=== PATIENT | female | born 1985 | race African-American/Black ===

== ENCOUNTER 2016-10-10 15:37 | Emergency (ER) | payer MEDICAID ==
[~2016-10-10] VITALS: Ht 167.6 cm; Wt 70.3 kg
[~2016-10-10 15:37] MED LIST: DICL30AD3 PO; DIPH50CA37 PO; FOLI1TAB16 PO; HYDR500C2 PO; PROM25TA15 PO
[2016-10-10] MEDS ORDERED: HYDROMORPHONE 1 MG/1 ML DISP.SYRIN IV ONE ×2 (17:30→19:15)
[2016-10-10] MEDS ORDERED: diphenhydrAMINE 50 MG/1 ML VIAL IV ONE ×2 (17:30→19:15)
--- NOTE | 2016-10-10 17:35 | NUR ---
Pt arrived to ER with luis e cath to LUE already accessed, flused without difficulty.
[2016-10-10] MEDS ORDERED: HYDROMORPHONE 2 MG/1 ML DISP.SYRIN ONE ×2 (17:49→19:18)
[2016-10-10] MEDS ORDERED: diphenhydrAMINE 50 MG/1 ML VIAL ONE ×2 (17:49→19:18)
[2016-10-10] MEDS ORDERED: HEPARIN SODIUM,PORCINE/PF 100 UNIT/ML, 5ML SYR ONE (17:55)
--- NOTE | 2016-10-10 19:17 | NUR ---
Patient discharged to home in stable conditon. Written and verbal after care instructions given. Patient verbalizes understanding of instructions.
== END 2016-10-10 19:18 | disposition home or self-care (01) ==
LOC: ER 15:37
DX: Z01.89 Encounter for other specified special examinations (principal); F10.20 Alcohol dependence, uncomplicated; Z88.6 Allergy status to analgesic agent; Z88.1 Allergy status to other antibiotic agents; Z88.8 Allergy status to other drugs, medicaments and biological substances
CPT/HCPCS: 93005; A4663; J1170; J1200; J1642

== ENCOUNTER 2016-10-24 16:34 | Emergency (ER) | payer MEDICAID ==
[~2016-10-24] VITALS: Ht 167.6 cm; Wt 68.0 kg
[2016-10-24] MEDS ORDERED: diphenhydrAMINE 50 MG/1 ML VIAL IV ONE ×2 (17:00→17:45)
[2016-10-24] MEDS ORDERED: HYDROMORPHONE 1 MG/1 ML DISP.SYRIN IV ONE ×2 (17:00→17:45)
[2016-10-24] MEDS ORDERED: diphenhydrAMINE 50 MG/1 ML VIAL ONE ×2 (17:03→17:56)
[2016-10-24] MEDS ORDERED: HYDROMORPHONE 2 MG/1 ML DISP.SYRIN ONE ×2 (17:03→17:56)
--- NOTE | 2016-10-24 17:05 | NUR ---
Patient is resting comfortably on gurney while using her personal electronic device, NAD
[2016-10-24] MEDS ORDERED: PROMETHAZINE HCL 25 MG/1 ML VIAL IV ONE (17:15)
[2016-10-24] MEDS ORDERED: PROMETHAZINE HCL 25 MG/1 ML VIAL ONE (17:24)
--- NOTE | 2016-10-24 17:44 | NUR ---
Patient wants more pain medicine, notified.
[2016-10-24] MEDS ORDERED: HEPARIN SODIUM,PORCINE/PF 100 UNIT/ML, 5ML SYR ONE (17:46)
--- NOTE | 2016-10-24 17:52 | NUR ---
Patient discharged to home in stable conditon. Written and verbal after care instructions given to patient. Patient verbalizes understanding of instructions.
--- NOTE | 2016-10-24 18:14 | NUR ---
Patient ambulated out of ER with brisk steady gait.
== END 2016-10-24 18:14 | disposition home or self-care (01) ==
LOC: ER 16:36
DX: D57.00 Hb-SS disease with crisis, unspecified (principal); F10.20 Alcohol dependence, uncomplicated; Z88.1 Allergy status to other antibiotic agents; Z88.6 Allergy status to analgesic agent; Z88.8 Allergy status to other drugs, medicaments and biological substances
CPT/HCPCS: 93005; 96374; 96375; 96376; 99284; A4663; J1170 ×2; J1200 ×2; J1642; J2550; J3490

== ENCOUNTER 2016-11-14 14:20 | Emergency (ER) | payer MEDICAID ==
--- NOTE | 2016-11-14 14:25 | NUR ---
PT LEFT WITHOUT BEING TRIAGED, PT SAID HAD TO DO SOME CHORES AND WILL COME BACK LATER.
== END 2016-11-14 14:25 | disposition left against medical advice (07) ==
LOC: ER 14:20
DX: Z53.21 Procedure and treatment not carried out due to patient leaving prior to being seen by health care provider (principal)

== ENCOUNTER 2016-11-19 16:23 | Emergency (ER) | payer MEDICAID ==
[~2016-11-19] VITALS: Ht 167.6 cm; Wt 68.0 kg
[2016-11-19] MEDS ORDERED: diphenhydrAMINE 50 MG/1 ML VIAL IV ONE ×2 (16:45→17:45)
[2016-11-19] MEDS ORDERED: HYDROMORPHONE 1 MG/1 ML DISP.SYRIN IV ONE ×2 (16:45→17:45)
[2016-11-19] MEDS ORDERED: IV NORMAL SALINE 1000 ML BAG IV ONE (16:45)
[2016-11-19] MEDS ORDERED: HYDROMORPHONE 2 MG/1 ML DISP.SYRIN ONE ×2 (16:52→18:11)
[2016-11-19] MEDS ORDERED: diphenhydrAMINE 50 MG/1 ML VIAL ONE ×2 (16:52→18:11)
--- NOTE | 2016-11-19 18:31 | NUR ---
Patient discharged to home in stable conditon. Written and verbal after care instructions given. Patient verbalizes understanding of instructions.
== END 2016-11-19 18:38 | disposition home or self-care (01) ==
LOC: ER 16:23
DX: D57.00 Hb-SS disease with crisis, unspecified (principal); F10.20 Alcohol dependence, uncomplicated; Z90.49 Acquired absence of other specified parts of digestive tract; Z88.6 Allergy status to analgesic agent; Z88.1 Allergy status to other antibiotic agents; Z88.8 Allergy status to other drugs, medicaments and biological substances
CPT/HCPCS: A4663; J1170; J1200; J7030

== ENCOUNTER 2017-05-20 17:51 | Inpatient (IN) | payer MEDICAID ==
[~2017-05-20] VITALS: Ht 167.6 cm; Wt 65.8 kg
[~2017-05-20 17:51] MED LIST changes: -DICL30AD3 PO; +HYDR4TAB4 PO
--- NOTE | 2017-05-20 19:45 | NUR ---
Pt ambulated to room with steady gait. Pt c/o sickle cell generalized pain. As well as mid sternal sharp cp radiating to left chest. Pt changed into gown and placed on monitor. Pt resting in position of comfort for self, awaiting further eval
[2017-05-20 20:56] LABS: HEMOGLOBIN 7.9 G/DL (12.0-16.0); MEAN CORPUSCULAR HEMOGLOBIN 34.7 UUG (27.0-31.0); MEAN CORPUSCULAR HGB CONC 35 g/dL (32.0-37.0); MEAN CORPUSCULAR VOLUME 98.5 FL (81.0-99.0); PLATELET COUNT (AUTO) 310 K/UL (150-450); WHITE BLOOD COUNT (AUTO) 16.8 K/UL (4.0-11.2)
[2017-05-20 20:59] LABS: CARBON DIOXIDE 24 mmol/L (21-32); CHLORIDE 105 mmol/L (98-107); CREATININE 0.6 mg/dL (0.6-1.3); GLUCOSE 100 mg/dL (74-106); POTASSIUM 3.2 mmol/L (3.5-5.1); UREA NITROGEN, BLOOD 8 mg/dL (7-18)
[2017-05-20 21:00] LABS: RED BLOOD CELL COUNT(AUTO) 2.29 MIL/UL (4.2-5.4)
[2017-05-20] MEDS ORDERED: HYDROMORPHONE 1 MG/1 ML DISP.SYRIN IV ONE ×2 (21:00→22:45)
[2017-05-20] MEDS ORDERED: IV NORMAL SALINE 1000 ML BAG IV ONE ×2 (21:00→22:45)
[2017-05-20] MEDS ORDERED: diphenhydrAMINE 50 MG/1 ML VIAL IV ONE (21:00)
[2017-05-20 21:01] LABS: HEMATOCRIT 22.5 % (37-47)
[2017-05-20 21:11] LABS: LYMPHOCYTES % (MANUAL) 28 % (20-40); NEUTROPHILS % (MANUAL) 67 % (42-75)
[2017-05-20 21:12] LABS: ALANINE AMINOTRANSFERASE 66 U/L (14-59); ALKALINE PHOSPHATASE 98 U/L (50-136); ASPARTATE AMINOTRANSFERASE 80 U/L (15-37); BILIRUBIN,DIRECT 0.5 mg/dL (0.0-0.2); BILIRUBIN,TOTAL 2.6 mg/dL (0.2-1.0); MONOCYTES % (MANUAL) 5 % (2-10); TOTAL PROTEIN, SERUM 7.2 g/dL (6.4-8.2)
[2017-05-20] MEDS ORDERED: diphenhydrAMINE 50 MG/1 ML VIAL ONE ×2 (21:46→23:13)
[2017-05-20] MEDS ORDERED: HYDROMORPHONE 1 MG/1 ML DISP.SYRIN ONE ×2 (21:47→23:13)
--- NOTE | 2017-05-20 22:30 | NUR ---
Pt conts to c/o severe pain and itching from previous pain medication. Pt requesting more dilaudid and benadryl. Dr. Palacios notified, awaiting further orders.
[2017-05-20] MEDS ORDERED: diphenhydrAMINE 50 MG/1 ML VIAL IM ONE (22:45)
--- NOTE | 2017-05-20 23:11 | NUR ---
Pt medicated for cont c/o pain and itching. Will monitor for effects of medication.
[2017-05-20] MEDS ORDERED: IOHEXOL 350 100 ML INFUS..BTL ONE ×2 (23:26→23:52)
[2017-05-20] MEDS ORDERED: IV NORMAL SALINE 250 ML IV ONE (23:26)
--- NOTE | 2017-05-20 23:28 | NUR ---
Pt to CT via vania
--- NOTE | 2017-05-21 00:15 | NUR ---
Pt returned from CT via rflushing. Pt conts to c/o pain. Sts her general pain improved but is now returning but her chest pain never changed. Dr. Palacios notified. Awaiting further orders.
[2017-05-21] MEDS ORDERED: HYDROMORPHONE 1 MG/1 ML DISP.SYRIN IV ONE (00:30)
--- NOTE | 2017-05-21 00:32 | NUR ---
Pt medicated for discomfort, will monitor for effects of medication. Fluid bolus cont infusing freely to gravity.
[2017-05-21] MEDS ORDERED: HYDROMORPHONE 1 MG/1 ML DISP.SYRIN ONE (00:43)
[2017-05-21] MEDS ORDERED: IOHEXOL 350 100 ML INFUS..BTL ONE (01:00)
--- NOTE | 2017-05-21 02:45 | NUR ---
Epic stamp redemption clerk paged for Dr. Palacios
--- NOTE | 2017-05-21 03:08 | NUR ---
Pt resting in position of comfort for self with eyes closed, resp even and unlabored. No obvious signs of distress at this time.
--- NOTE | 2017-05-21 05:37 | NUR ---
Woke pt up to check how she was feeling. Pt cont to c/o 02/[address] Palacios notified. Awaiting further orders. Admission pending.
--- NOTE | 2017-05-21 05:50 | NUR ---
Report called to JULIA Trotter. Preparing to transfer pt to the floor.
[2017-05-21 06:00] VITALS: BP 132/65
[2017-05-21] MEDS ORDERED: PROMETHAZINE HCL INJ 12.5 MG in IV DEXTROSE 5% 50 ML IV PRN (06:45)
[2017-05-21] MEDS ORDERED: ZOLPIDEM 5 MG TABLET PO PRN (06:45)
[2017-05-21] MEDS ORDERED: Z GUARD REMEDY PASTE 57 GM TUBE TOP PRN (06:45)
[2017-05-21] MEDS ORDERED: diphenhydrAMINE 50 MG CAPSULE PO PRN (06:45)
[2017-05-21] MEDS ORDERED: HYDROMORPHONE 1 MG/1 ML DISP.SYRIN IV PRN (06:45)
[2017-05-21] MEDS ORDERED: PROMETHAZINE HCL 25 MG TABLET PO PRN (06:45)
[2017-05-21] MEDS ORDERED: ACETAMINOPHEN 325 MG TABLET PO PRN (06:45)
[2017-05-21] MEDS ORDERED: diphenhydrAMINE 50 MG/1 ML VIAL IV PRN (08:00)
[2017-05-21] MEDS ORDERED: HYDROMORPHONE 2 MG/1 ML DISP.SYRIN IV PRN (08:30)
[2017-05-21] MEDS: FOLIC ACID 1 MG TABLET PO SCH (08:58)
[2017-05-21] MEDS ORDERED: HYDROXYUREA 500 MG CAPSULE PO SCH (09:00)
--- NOTE | 2017-05-21 09:14 | NUR ---
PT REFUSES TELE MONITOR, PER DR. ALMANZA D/C TELEMETRY
--- NOTE | 2017-05-21 10:44 | NUR ---
PT REQUESTS DILAUDID 2MG Q2H AND BENADRYL Q4H, PAGED DR. LEA. PH [phone]
--- NOTE | 2017-05-21 10:53 | NUR ---
PER DR. LEA DILAUDID 2MG Q2H, BENADRYL 25MG Q4HR, ORDER NOTED.
[2017-05-21] MEDS: HYDROMORPHONE 2 MG/1 ML DISP.SYRIN IV PRN ×5 (12:07→23:32)
[2017-05-21] MEDS: IV NS 1000 ML 1,000 ML IV PRN ×2 (13:18→21:34)
[2017-05-21] MEDS: diphenhydrAMINE 50 MG/1 ML VIAL IV PRN ×2 (15:11→21:20)
[2017-05-21 15:19] VITALS: BP 115/67
--- NOTE | 2017-05-21 19:01 | NUR ---
PT IS LAYING IN BED COMFORTABLY. NO S/S OF RESPIRATORY DISTRESS NOTED. NO PAIN REPORTED. IV INTACT/PATENT. ALL SAFETY NEEDS ARE MET.
--- NOTE | 2017-05-21 19:30 | NUR ---
RECEIVED SHIFT REPORT FROM PREVIOUS SHIFT NURSE. PATIENT IS A/OX3, AMBULATORY, APPEARS COMFORTABLE. COMPLAINS OF PAIN IN BOTH KNEES AND LOWER LEFT BACK. WILL PROVIDE PAIN MANAGEMENT. PATIENT IS SAFE, NO S/S OF DISTRESS, STABLE CONDITION. SAFETY AND COMFORT WILL BE PROVIDED THROUGHOUT SHIFT.
[2017-05-21 20:00] VITALS: BP 136/53
[2017-05-22] MEDS: diphenhydrAMINE 50 MG/1 ML VIAL IV PRN ×6 (02:19→22:58)
[2017-05-22] MEDS: HYDROMORPHONE 2 MG/1 ML DISP.SYRIN IV PRN ×10 (02:25→22:57)
[2017-05-22 04:00] VITALS: BP 130/73
[2017-05-22] MEDS: IV NS 1000 ML 1,000 ML IV PRN ×3 (06:40→23:10)
[2017-05-22 08:10] LABS: BASOPHILS # (AUTO) 0.1 K/uL (0.0-8.0); BASOPHILS % (AUTO) 0.9 % (0.0-2.0); EOSINOPHILS # (AUTO) 0.5 K/uL (0.0-0.7); EOSINOPHILS % (AUTO) 3.8 % (0.0-7.0); HEMATOCRIT 24.1 % (37-47); HEMOGLOBIN 8.2 G/DL (12.0-16.0); LYMPHOCYTES # (AUTO) 3.9 K/UL (0.8-4.8); MEAN CORPUSCULAR HEMOGLOBIN 33.1 UUG (27.0-31.0); MEAN CORPUSCULAR HGB CONC 34 g/dL (32.0-37.0); MEAN CORPUSCULAR VOLUME 97.9 FL (81.0-99.0); MONOCYTES # (AUTO) 1.6 K/UL (0.1-1.30); MONOCYTES % (AUTO) 12.3 % (0.0-11.0); NEUTROPHILS # (AUTO) 7.2 K/UL (1.8-8.9); WHITE BLOOD COUNT (AUTO) 13.3 K/UL (4.0-11.2)
[2017-05-22 08:21] LABS: PLATELET COUNT (AUTO) 316 K/UL (150-450); RED BLOOD CELL COUNT(AUTO) 2.46 MIL/UL (4.2-5.4)
[2017-05-22 08:31] LABS: ALANINE AMINOTRANSFERASE 67 U/L (14-59); ALKALINE PHOSPHATASE 100 U/L (50-136); ASPARTATE AMINOTRANSFERASE 85 U/L (15-37); BILIRUBIN,TOTAL 2.6 mg/dL (0.2-1.0); CARBON DIOXIDE 26 mmol/L (21-32); CHLORIDE 104 mmol/L (98-107); CHOLESTEROL 194 mg/dL (<200); CREATININE 0.5 mg/dL (0.6-1.3); GLUCOSE 115 mg/dL (74-106); HDL CHOLESTEROL 30 mg/dL (40-60); MAGNESIUM 1.6 mg/dL (1.8-2.4); PHOSPHOROUS 4.1 mg/dL (2.5-4.9); POTASSIUM 4.2 mmol/L (3.5-5.1); TOTAL PROTEIN, SERUM 7.1 g/dL (6.4-8.2); TRIGLYCERIDES 263 MG/DL (30-150); UREA NITROGEN, BLOOD 6 mg/dL (7-18)
[2017-05-22 08:35] LABS: THYROID STIMULATING HORMONE 2.809 mIU/mL (0.358-3.740)
[2017-05-22] MEDS: FOLIC ACID 1 MG TABLET PO SCH (08:47)
[2017-05-22] MEDS: HYDROXYUREA 500 MG CAPSULE PO SCH (08:48)
[2017-05-22 09:08] LABS: BAND % (MANUAL) 2 % (0-10); EOSINOPHILS % (MANUAL) 5 % (0-8); LYMPHOCYTES % (MANUAL) 30 % (20-40); MONOCYTES % (MANUAL) 10 % (2-10); NEUTROPHILS % (MANUAL) 53 % (42-75)
[2017-05-22 11:45] VITALS: BP 116/74
[2017-05-22] MEDS: MAGNESIUM SULFATE/D5W 100 ML IV SCH ×2 (14:15→14:38)
--- NOTE | 2017-05-22 20:00 | NUR ---
PT IS A/O X 4 IN NO ACUTE DISTRESS. ABLE TO FOLLOW SIMPLE COMMANDS WITHOUT DIFFICULTY. STATES SHE HAS CHRONIC PAIN AND REQUESTS DILAUDED AND BENADRYL UPON AVAILABLE PRN TIME. V/S NOTED WITH BP 148/77. NO HEADACHES OR DIZZINESS OR SHORTNESS OF BREATHE. CONTINUE TO MONITOR. CALL LIGHT PLACED WITHIN REACH. CONTINUES NS @125ML/HR TO DAVIDA CATH ON LEFT UPPER ARM.
[2017-05-22 20:40] VITALS: BP 148/77
[2017-05-23] MEDS: HYDROMORPHONE 2 MG/1 ML DISP.SYRIN IV PRN ×11 (00:56→23:55)
--- NOTE | 2017-05-23 01:00 | NUR ---
PT REQUSTED PRN DILALUDID AT THIS TIME DUE TO GENERALIZED PAIN. NO ACUTE DISTRESS NOTED. CONTINUE TO MONITOR.
[2017-05-23] MEDS: diphenhydrAMINE 50 MG/1 ML VIAL IV PRN ×5 (05:00→21:57)
[2017-05-23 05:02] VITALS: BP 134/71
[2017-05-23 08:35] LABS: CARBON DIOXIDE 26 mmol/L (21-32); CHLORIDE 103 mmol/L (98-107); CREATININE 0.5 mg/dL (0.6-1.3); GLUCOSE 107 mg/dL (74-106); MAGNESIUM 1.6 mg/dL (1.8-2.4); POTASSIUM 4.4 mmol/L (3.5-5.1); UREA NITROGEN, BLOOD 7 mg/dL (7-18)
[2017-05-23] MEDS: FOLIC ACID 1 MG TABLET PO SCH (09:39)
[2017-05-23] MEDS: MAGNESIUM SULFATE/D5W 100 ML IV SCH ×2 (10:45→16:02)
[2017-05-23] MEDS: HYDROXYUREA 500 MG CAPSULE PO SCH (10:55)
[2017-05-23 11:29] VITALS: BP 127/61
[2017-05-23] MEDS: IV NS 1000 ML 1,000 ML IV PRN ×2 (18:07→18:08)
--- NOTE | 2017-05-23 18:52 | NUR ---
PT. RESTING AND SLEEPING INTERMITTENTLY THROUGHOUT SHIFT BUT MORE ACTIVE IN LATE AFTERNOON TALKING ON THE PHONE AND INTERACTIVE WITH STAFF. SITTING UP FOR DINNER. GOOD APPETITE. VOIDING WELL. FAIR TO GOOD PAIN CONTROL.
--- NOTE | 2017-05-23 19:30 | NUR ---
PT IS ALERT AWAKE IN ROOM IN NO ACUTE DISTRESS. DAVIDA CATH PRESENT TO LEFT UPPER ARM INTACT. STATES PAIN 2/10 GENERALIZED TO BODY. ABLE TO MAKE NEEDS KNOWN. ENCOURAGED FLUID INTAKE AND TO USE CALL LIGHT FOR ASSISTANCE NEEDED. IV HYDRATION NS AT 125ML/HR CONTINUOUS STILL PRESENT AT THIS TIME. CONTINUE TO MONITOR.
[2017-05-23 20:15] VITALS: BP 149/81
[2017-05-24] MEDS: IV NS 1000 ML 1,000 ML IV PRN (02:06)
[2017-05-24] MEDS: diphenhydrAMINE 50 MG/1 ML VIAL IV PRN ×3 (02:06→10:55)
[2017-05-24] MEDS: HYDROMORPHONE 2 MG/1 ML DISP.SYRIN IV PRN ×5 (02:07→10:55)
[2017-05-24 06:11] VITALS: BP 114/53
[2017-05-24] MEDS ORDERED: PANTOPRAZOLE SODIUM 40 MG TABLET.DR PO SCH (07:00)
--- NOTE | 2017-05-24 07:30 | NUR ---
PT IS ALERT AWAKE IN ROOM IN NO ACUTE DISTRESS. DAVIDA CATH PRESENT TO LEFT UPPER ARM INTACT. ABLE TO MAKE NEEDS KNOWN. ENCOURAGED FLUID INTAKE AND TO USE CALL LIGHT FOR ASSISTANCE NEEDED. CONTINUE TO MONITOR
[2017-05-24] MEDS: FOLIC ACID 1 MG TABLET PO SCH (08:12)
[2017-05-24] MEDS: HYDROXYUREA 500 MG CAPSULE PO SCH (08:14)
--- NOTE | 2017-05-24 11:50 | NUR ---
PT REFUSED THE VITAL SIGN MD MADE AWARE
--- NOTE | 2017-05-24 12:52 | NUR ---
D/C ORDERS RECEIVED NOTED AND CARRIED OUT.D.C PORTAL CATH BY RN.D/C INSTRUCTIONS AND EDUCATIONS GIVEN TO THE PT.PT VERBALIZED UNDERSTANDING ALL THE INSTRUCTIONS.PT LEFT THE FACILITY VIA PRIVATE CAR IN STABLE CONDITION.
== END 2017-05-24 12:55 | disposition home or self-care (01) | DRG 662 ==
LOC: ER 17:51 → TELE 05-21 05:48 → MED 05-21 10:10
PROVIDERS: ADMIT Nurse Practitioner Acute Care; ATTEND Family Medicine
DX: D57.00 Hb-SS disease with crisis, unspecified (principal); M90.561 Osteonecrosis in diseases classified elsewhere, right lower leg; G40.909 Epilepsy, unspecified, not intractable, without status epilepticus; Z86.73 Personal history of transient ischemic attack (TIA), and cerebral infarction without residual deficits; Z88.1 Allergy status to other antibiotic agents; Z83.2 Family history of diseases of the blood and blood-forming organs and certain disorders involving the immune mechanism; Z90.49 Acquired absence of other specified parts of digestive tract; Z88.2 Allergy status to sulfonamides; Z88.8 Allergy status to other drugs, medicaments and biological substances; R91.8 Other nonspecific abnormal finding of lung field; D63.8 Anemia in other chronic diseases classified elsewhere
CPT/HCPCS: 36415; 70030-TC; 71010; 71275; 73562; 82746; 83735; 84100; 84443; 84703; 85025; 85730; 93005; A4663; J1170; J1200; J2550; J3475; J7030; J7050; J7060; Q9967

== ENCOUNTER 2017-06-11 16:58 | Inpatient (IN) | payer MEDICAID ==
[~2017-06-11] VITALS: Ht 167.6 cm; Wt 74.8 kg
[~2017-06-11 16:58] MED LIST changes: -FOLI1TAB16 PO
[2017-06-11] MEDS ORDERED: DAPT500V2 IV (17:39)
[2017-06-11] MEDS ORDERED: [UNRECOGNIZED DRUG - REMARK] (17:39)
[2017-06-11] MEDS ORDERED: IV NS 1000 ML 1,000 ML IV ONE (18:30)
[2017-06-11] MEDS ORDERED: diphenhydrAMINE 50 MG/1 ML VIAL IV ONE ×2 (19:00→19:30)
[2017-06-11] MEDS ORDERED: HYDROMORPHONE 1 MG/1 ML DISP.SYRIN IV ONE ×2 (19:00→19:30)
[2017-06-11 19:11] LABS: BASOPHILS # (AUTO) 0.2 K/uL (0.0-8.0); BASOPHILS % (AUTO) 1.3 % (0.0-2.0); EOSINOPHILS # (AUTO) 0.6 K/uL (0.0-0.7); EOSINOPHILS % (AUTO) 4.6 % (0.0-7.0); HEMOGLOBIN 7.5 G/DL (12.0-16.0); LYMPHOCYTES # (AUTO) 3.6 K/UL (0.8-4.8); LYMPHOCYTES % (AUTO) 28.6 % (20.5-51.5); MEAN CORPUSCULAR HEMOGLOBIN 33.6 UUG (27.0-31.0); MEAN CORPUSCULAR HGB CONC 36 g/dL (32.0-37.0); MEAN CORPUSCULAR VOLUME 93.3 FL (81.0-99.0); MONOCYTES # (AUTO) 1.2 K/UL (0.1-1.30); MONOCYTES % (AUTO) 9.5 % (0.0-11.0); PLATELET COUNT (AUTO) 363 K/UL (150-450); RED BLOOD CELL COUNT(AUTO) 2.23 MIL/UL (4.2-5.4); WHITE BLOOD COUNT (AUTO) 12.6 K/UL (4.0-11.2)
[2017-06-11] MEDS ORDERED: diphenhydrAMINE 50 MG/1 ML VIAL ONE ×2 (19:15→19:44)
[2017-06-11] MEDS ORDERED: HYDROMORPHONE 2 MG/1 ML DISP.SYRIN ONE ×2 (19:16→19:45)
[2017-06-11 19:18] LABS: HEMATOCRIT 20.8 % (37-47)
[2017-06-11 19:20] LABS: CREATININE 0.7 mg/dL (0.6-1.3); POTASSIUM 3.9 mmol/L (3.5-5.1)
[2017-06-11 19:25] LABS: BILIRUBIN,TOTAL 2.1 mg/dL (0.2-1.0); TOTAL PROTEIN, SERUM 7.1 g/dL (6.4-8.2)
[2017-06-11 20:09] LABS: NEUTROPHILS % (MANUAL) 52 % (42-75)
[2017-06-11 20:10] LABS: BAND % (MANUAL) 4 % (0-10); EOSINOPHILS % (MANUAL) 5 % (0-8); LYMPHOCYTES % (MANUAL) 30 % (20-40); MONOCYTES % (MANUAL) 9 % (2-10)
[2017-06-11] MEDS ORDERED: diphenhydrAMINE 50 MG CAPSULE PO PRN (21:00)
[2017-06-11] MEDS ORDERED: ACETAMINOPHEN 325 MG TABLET PO PRN (21:00)
[2017-06-11] MEDS ORDERED: ONDANSETRON 4 MG/2 ML VIAL IV PRN (21:00)
[2017-06-11] MEDS ORDERED: HYDROCODONE/APAP 5-325MG TABLET PO PRN (21:00)
[2017-06-11] MEDS ORDERED: MAGNESIUM HYDROXIDE 30 ML LIQUID UDC PO PRN (21:00)
[2017-06-11] MEDS ORDERED: Z GUARD REMEDY PASTE 57 GM TUBE TOP PRN (21:00)
[2017-06-11] MEDS ORDERED: PROMETHAZINE HCL 25 MG TABLET PO PRN (21:00)
--- NOTE | 2017-06-11 21:20 | NUR ---
Pt. admitted to [facility], under care of Dr. Campo Belongs List completed
--- NOTE | 2017-06-11 21:30 | NUR ---
RECEIVED PT FROM ER VIA WHEELCHAIR. PT IS ALERT, RESPONSIVE, IN NO ACUTE DISTRESS. PT IS ADMITTED TO MED SURG UNDER THE CARE OF DR. BELL. DX: SICKLE CELL PAIN. BELONGING LIST DONE, VS STABLE, AFEBRILE. ADMISSION PROCESS AND CARE PLAN INITIATED. NEW ADMISSION ORDERS DONE BY DR. BELL. SAFETY MEASURES IN PLACE, WILL CONTINUE TO MONITOR.
[2017-06-11 21:41] VITALS: BP 127/62
[2017-06-11] MEDS: HYDROMORPHONE 2 MG/1 ML DISP.SYRIN ONE ×2 (23:16→23:26)
[2017-06-11] MEDS ORDERED: diphenhydrAMINE 50 MG CAPSULE ONE (23:17)
[2017-06-11] MEDS: HYDROMORPHONE 1 MG/1 ML DISP.SYRIN IV PRN (23:26)
[2017-06-11] MEDS: IV NS 1000 ML 1,000 ML IV PRN (23:59)
[2017-06-12] MEDS: HYDROMORPHONE 1 MG/1 ML DISP.SYRIN IV PRN ×2 (02:29→05:28)
[2017-06-12] MEDS ORDERED: HYDROMORPHONE 2 MG/1 ML DISP.SYRIN ONE ×2 (02:42→05:39)
--- NOTE | 2017-06-12 02:50 | NUR ---
PT REPORTED TAKING ANTIBIOTIC TREATMENT FOR PORTACATH ACCESS THAT WAS PRESCRIBED FROM HER RECENT HOSPITALIZATION AT [facility]. PER PATIENT, MEDICATION IS DAPTOMYCIN 408 MG DAILY FOR [address] FIREPROOF DOOR ASSEMBLER DR. GARZA MADE AWARE. ALSO NOTIFIED REGARDING PATIENT'S ALLERGY TO ZOFRAN, ZOFRAN IS LISTED ON THE PATIENT'S MEDICATION ADMINISTRATION RECORD. WILL ENDORSE TO DAY SHIFT RN. Addendum: 06/12/17 at 0559 by MAGDALENA FELIX RN Add: Patient stated that the reason she is on Daptomycin is to treat overall infection based on her blood culture at [facility] or possible infection from her portacath line.
[2017-06-12 04:40] VITALS: BP 115/47
[2017-06-12] MEDS ORDERED: HYDROMORPHONE 2 MG/1 ML DISP.SYRIN IV PRN (07:24)
[2017-06-12] MEDS: HYDROMORPHONE 4 MG/1 ML DISP.SYRIN IV PRN ×5 (08:53→21:12)
[2017-06-12] MEDS ORDERED: HYDROXYUREA 500 MG CAPSULE PO SCH (09:00)
[2017-06-12 11:13] LABS: BASOPHILS # (AUTO) 0.1 K/uL (0.0-8.0); EOSINOPHILS # (AUTO) 0.7 K/uL (0.0-0.7); LYMPHOCYTES # (AUTO) 2.9 K/uL (20.0-40.0); NEUTROPHILS # (AUTO) 4.7 K/uL (1.8-8.9)
[2017-06-12 11:21] LABS: BASOPHILS % (AUTO) 0.6 % (0.0-2.0); EOSINOPHILS % (AUTO) 6.4 % (0.0-7.0); LYMPHOCYTES % (AUTO) 28.7 % (20.5-51.5); MEAN CORPUSCULAR HEMOGLOBIN 33.8 uug (24.7-32.8); MEAN CORPUSCULAR HGB CONC 37 g/dL (32.3-35.6); MEAN CORPUSCULAR VOLUME 92.4 fL (75.5-95.3); MONOCYTES # (AUTO) 1.8 K/uL (2.0-10.0); MONOCYTES % (AUTO) 17.9 % (0.0-11.0); NEUTROPHILS % (AUTO) 46.4 % (38.5-71.5); PLATELET COUNT (AUTO) 309 K/uL (179-408); WHITE BLOOD COUNT (AUTO) 10.2 K/uL (3.8-11.8)
[2017-06-12 11:23] LABS: RED BLOOD CELL COUNT(AUTO) 2.03 MIL/uL (3.63-4.92)
[2017-06-12 11:25] LABS: HEMOGLOBIN 6.9 g/dL (10.9-14.3)
[2017-06-12 11:26] LABS: HEMATOCRIT 18.7 % (31.2-41.9)
[2017-06-12] MEDS: IV NS 1000 ML 1,000 ML IV PRN (12:02)
[2017-06-12 12:07] VITALS: BP 112/69
[2017-06-12 12:10] LABS: CARBON DIOXIDE 21 mmol/L (21-32); CHLORIDE 108 mmol/L (98-107); CREATININE 0.6 mg/dL (0.6-1.3); GLUCOSE 123 mg/dL (74-106); MAGNESIUM 1.7 mg/dL (1.8-2.4); PHOSPHOROUS 3.6 mg/dL (2.5-4.9); POTASSIUM 4.3 mmol/L (3.5-5.1); UREA NITROGEN, BLOOD 8 mg/dL (7-18)
[2017-06-12 12:27] LABS: BASOPHILS % (MANUAL) 1 % (0-2); EOSINOPHILS % (MANUAL) 7 % (0-8); LYMPHOCYTES % (MANUAL) 41 % (20-40); MONOCYTES % (MANUAL) 12 % (2-10); NEUTROPHILS % (MANUAL) 39 % (42-75)
[2017-06-12] MEDS: HYDROXYUREA 500 MG CAPSULE PO SCH (15:06)
[2017-06-12] MEDS: diphenhydrAMINE 50 MG/1 ML VIAL IV PRN ×2 (15:07→21:12)
--- NOTE | 2017-06-12 15:30 | NUR ---
PT REFUSING VITALS TO BE TAKEN
--- NOTE | 2017-06-12 19:30 | NUR ---
Received patient sitting comfortably in bed, eating and talking on the phone. Appears to be A&O x 4. No c/o pain or sob. Skin intact. Port a cath on the left upper arm patent and intact. Safety initiated. Call light within reach. Will continue to monitor.
[2017-06-12 19:45] VITALS: BP 114/44
[2017-06-13] MEDS: IV NS 1000 ML 1,000 ML IV PRN ×2 (00:12→15:24)
[2017-06-13] MEDS: diphenhydrAMINE 50 MG/1 ML VIAL IV PRN ×4 (03:21→21:10)
[2017-06-13] MEDS: HYDROMORPHONE 4 MG/1 ML DISP.SYRIN IV PRN ×6 (03:22→21:10)
--- NOTE | 2017-06-13 03:22 | NUR ---
C/O GENERALIZED PAIN. MEDS GIVEN. WILL CONTINUE TO MONITOR.
[2017-06-13 04:20] VITALS: BP 127/66
--- NOTE | 2017-06-13 04:59 | NUR ---
Patient slept t/o shift. C/O generalized pain, meds given, stated relief. A&O x 4. Patient on the phone most of the time. Vital signs stable. No acute distress noted. Safety and comfort measures maintained t/o shift. All meds given as ordered. All needs met.
[2017-06-13] MEDS ORDERED: HYDROXYUREA 500 MG CAPSULE PO SCH (09:00)
[2017-06-13] MEDS: HYDROXYUREA 500 MG CAPSULE PO SCH (09:10)
[2017-06-13 09:24] LABS: CARBON DIOXIDE 23 mmol/L (21-32); CHLORIDE 106 mmol/L (98-107); CREATININE 0.6 mg/dL (0.6-1.3); GLUCOSE 110 mg/dL (74-106); POTASSIUM 4.3 mmol/L (3.5-5.1); UREA NITROGEN, BLOOD 11 mg/dL (7-18)
[2017-06-13 09:45] LABS: EOSINOPHILS # (AUTO) 0.6 K/uL (0.0-0.7); MEAN CORPUSCULAR HEMOGLOBIN 33.4 uug (24.7-32.8)
[2017-06-13 10:03] LABS: BASOPHILS # (AUTO) 0.2 K/uL (0.0-8.0); BASOPHILS % (AUTO) 1.6 % (0.0-2.0); EOSINOPHILS % (AUTO) 4.4 % (0.0-7.0); LYMPHOCYTES # (AUTO) 3.1 K/uL (20.0-40.0); LYMPHOCYTES % (AUTO) 22.5 % (20.5-51.5); MEAN CORPUSCULAR HGB CONC 37 g/dL (32.3-35.6); MEAN CORPUSCULAR VOLUME 91.4 fL (75.5-95.3); MONOCYTES # (AUTO) 2.1 K/uL (2.0-10.0); MONOCYTES % (AUTO) 15.4 % (0.0-11.0); NEUTROPHILS # (AUTO) 7.8 K/uL (1.8-8.9); NEUTROPHILS % (AUTO) 56.1 % (38.5-71.5); PLATELET COUNT (AUTO) 322 K/uL (179-408)
[2017-06-13 10:32] LABS: HEMATOCRIT 19.2 % (31.2-41.9)
[2017-06-13 11:41] VITALS: BP 120/55
[2017-06-13] MEDS ORDERED: DAPTOMYCIN 500 MG in IV NORMAL SALINE 50 ML IV SCH (12:00)
[2017-06-13 13:53] LABS: EOSINOPHILS % (MANUAL) 3 % (0-8); LYMPHOCYTES % (MANUAL) 35 % (20-40); MONOCYTES % (MANUAL) 12 % (2-10); NEUTROPHILS % (MANUAL) 50 % (42-75)
[2017-06-13 15:09] VITALS: BP 122/65
--- NOTE | 2017-06-13 19:30 | NUR ---
Received patient siting comfortably in the chair. No acute distress noted. Talking on the phone. No c/o pain or sob. Safety initiated. Call light within reach. Will continue to monitor.
[2017-06-14] MEDS: diphenhydrAMINE 50 MG/1 ML VIAL IV PRN ×4 (03:24→21:04)
[2017-06-14] MEDS: HYDROMORPHONE 4 MG/1 ML DISP.SYRIN IV PRN ×7 (03:24→21:04)
[2017-06-14] MEDS ORDERED: HYDROMORPHONE 2 MG/1 ML DISP.SYRIN ONE ×2 (03:25→06:27)
--- NOTE | 2017-06-14 05:16 | NUR ---
Patient slept t/o shift. She did c/o of generalized pain, meds given, stated relief. Safety and comfort measures maintained t/o shift. All meds given as ordered. All needs met.
--- NOTE | 2017-06-14 08:00 | NUR ---
DISCUSSED PLAN OF CARE RE: PAIN MANAGEMENT, FALL PRECAUTION. PT AGREEABLE WITH PLAN OF CARE.
[2017-06-14] MEDS: HYDROXYUREA 500 MG CAPSULE PO SCH (08:45)
[2017-06-14 09:49] LABS: BASOPHILS # (AUTO) 0.3 K/uL (0.0-8.0); BASOPHILS % (AUTO) 1.7 % (0.0-2.0); EOSINOPHILS # (AUTO) 0.6 K/uL (0.0-0.7); EOSINOPHILS % (AUTO) 3.7 % (0.0-7.0); LYMPHOCYTES # (AUTO) 4.4 K/UL (0.8-4.8); LYMPHOCYTES % (AUTO) 28.9 % (20.5-51.5); MEAN CORPUSCULAR HEMOGLOBIN 33.3 UUG (27.0-31.0); MEAN CORPUSCULAR HGB CONC 36 g/dL (32.0-37.0); MEAN CORPUSCULAR VOLUME 93.2 FL (81.0-99.0); MONOCYTES # (AUTO) 1.8 K/UL (0.1-1.30); MONOCYTES % (AUTO) 12.1 % (0.0-11.0); NEUTROPHILS % (AUTO) 53.6 % (38.5-71.5); PLATELET COUNT (AUTO) 389 K/UL (150-450); WHITE BLOOD COUNT (AUTO) 15.1 K/UL (4.0-11.2)
[2017-06-14 10:03] LABS: HEMATOCRIT 20.8 % (37-47); HEMOGLOBIN 7.4 G/DL (12.0-16.0); RED BLOOD CELL COUNT(AUTO) 2.23 MIL/UL (4.2-5.4)
--- NOTE | 2017-06-14 10:30 | NUR ---
Dilaudid ing 2mg pulled out of the Pyxis by shift superintendent.
[2017-06-14 10:46] LABS: CARBON DIOXIDE 23 mmol/L (21-32); CHLORIDE 105 mmol/L (98-107); CREATININE 0.6 mg/dL (0.6-1.3); GLUCOSE 103 mg/dL (74-106); POTASSIUM 4.5 mmol/L (3.5-5.1); UREA NITROGEN, BLOOD 10 mg/dL (7-18)
[2017-06-14 11:05] VITALS: BP 111/60
[2017-06-14] MEDS ORDERED: DAPTOMYCIN 500 MG in IV NORMAL SALINE 50 ML IV SCH (12:00)
[2017-06-14 13:07] LABS: BAND % (MANUAL) 2 % (0-10); EOSINOPHILS % (MANUAL) 4 % (0-8); LYMPHOCYTES % (MANUAL) 31 % (20-40); MONOCYTES % (MANUAL) 12 % (2-10); NEUTROPHILS % (MANUAL) 51 % (42-75)
[2017-06-14 15:33] VITALS: BP 126/45
--- NOTE | 2017-06-14 17:42 | NUR ---
PT PAIN MANAGED WITH DILAUDID NO FALL NOTED ON THIS SHIFT. PLAN OF CARE EFFECTIVE.
[2017-06-14 19:45] VITALS: BP 138/60
[2017-06-15] MEDS: HYDROMORPHONE 4 MG/1 ML DISP.SYRIN IV PRN ×3 (00:06→09:00)
[2017-06-15] MEDS: diphenhydrAMINE 50 MG/1 ML VIAL IV PRN ×2 (03:11→09:00)
--- NOTE | 2017-06-15 06:21 | NUR ---
PATIENT SLEEP INTERMITTENTLY,NO ACUTE CHANGE/SHIFT, CONTINUE PAIN MANAGEMENT WITH DILAUDID,EFFECTIVE.CLOSELY MONITOR VITAL SIGNS.NO RESPIRATORY DISTRESS.
[2017-06-15 07:04] LABS: BASOPHILS # (AUTO) 0.1 K/uL (0.0-8.0); BASOPHILS % (AUTO) 0.9 % (0.0-2.0); EOSINOPHILS # (AUTO) 0.5 K/uL (0.0-0.7); EOSINOPHILS % (AUTO) 3.5 % (0.0-7.0); LYMPHOCYTES # (AUTO) 3.4 K/uL (20.0-40.0); LYMPHOCYTES % (AUTO) 24.8 % (20.5-51.5); MEAN CORPUSCULAR HEMOGLOBIN 33.9 uug (24.7-32.8); MEAN CORPUSCULAR HGB CONC 36 g/dL (32.3-35.6); MEAN CORPUSCULAR VOLUME 93.8 fL (75.5-95.3); MONOCYTES % (AUTO) 14.6 % (0.0-11.0); NEUTROPHILS # (AUTO) 7.7 K/uL (1.8-8.9); NEUTROPHILS % (AUTO) 56.2 % (38.5-71.5); PLATELET COUNT (AUTO) 332 K/uL (179-408); WHITE BLOOD COUNT (AUTO) 13.7 K/uL (3.8-11.8)
[2017-06-15 07:06] LABS: RED BLOOD CELL COUNT(AUTO) 1.92 MIL/uL (3.63-4.92)
[2017-06-15 07:09] LABS: HEMATOCRIT 18.1 % (31.2-41.9); HEMOGLOBIN 6.5 g/dL (10.9-14.3)
[2017-06-15 07:32] LABS: CARBON DIOXIDE 22 mmol/L (21-32); CHLORIDE 106 mmol/L (98-107); CREATININE 0.6 mg/dL (0.6-1.3); GLUCOSE 114 mg/dL (74-106); POTASSIUM 4.5 mmol/L (3.5-5.1); UREA NITROGEN, BLOOD 14 mg/dL (7-18)
[2017-06-15] MEDS: HYDROXYUREA 500 MG CAPSULE PO SCH (09:03)
[2017-06-15 09:08] LABS: BAND % (MANUAL) 1 % (0-10); BASOPHILS % (MANUAL) 1 % (0-2); EOSINOPHILS % (MANUAL) 4 % (0-8); LYMPHOCYTES % (MANUAL) 28 % (20-40); MONOCYTES % (MANUAL) 13 % (2-10); NEUTROPHILS % (MANUAL) 53 % (42-75)
--- NOTE | 2017-06-15 10:00 | NUR ---
Pt refused to have blood transfusion. "i usually get transfused below 6" Discussed risk of refusing PRBC transfusion and with low hg of 6.5. Notified Dr gutierrez of pt wanting to leave AMA. PT states that she has a senior sales operations analyst appt @1030 this AM and cannot wait for the DR to come. Pt continues to refused blood transfusion and left AMA
== END 2017-06-15 09:45 | disposition left against medical advice (07) | DRG 662 ==
LOC: ER 17:00 → MED 21:16
PROVIDERS: ADMIT Internal Medicine; ATTEND Internal Medicine
DX: D57.00 Hb-SS disease with crisis, unspecified (principal); A41.9 Sepsis, unspecified organism; G89.4 Chronic pain syndrome; G40.909 Epilepsy, unspecified, not intractable, without status epilepticus; Z88.6 Allergy status to analgesic agent; Z88.1 Allergy status to other antibiotic agents; Z88.2 Allergy status to sulfonamides; Z86.73 Personal history of transient ischemic attack (TIA), and cerebral infarction without residual deficits; Z90.49 Acquired absence of other specified parts of digestive tract; Z79.891 Long term (current) use of opiate analgesic
CPT/HCPCS: 36415; 71010; 83735; 84100; 85025; A4663; J0878; J1170; J1200; J3490; J7030; Q0163

== ENCOUNTER 2017-07-01 17:43 | Emergency (ER) | payer MEDICAID ==
[~2017-07-01] VITALS: Ht 167.6 cm; Wt 68.0 kg
[~2017-07-01 17:43] MED LIST changes: +DAPT500V2 IV; +[UNRECOGNIZED DRUG - REMARK]
[2017-07-01] MEDS ORDERED: IV NORMAL SALINE 1000 ML BAG IV ONE ×2 (18:30→19:00)
[2017-07-01] MEDS ORDERED: diphenhydrAMINE 50 MG CAPSULE PO ONE (18:30)
[2017-07-01] MEDS ORDERED: HYDROMORPHONE 1 MG/1 ML DISP.SYRIN IV ONE ×3 (18:30→20:15)
[2017-07-01] MEDS ORDERED: diphenhydrAMINE 50 MG/1 ML VIAL IV ONE ×2 (19:00→20:15)
[2017-07-01] MEDS ORDERED: diphenhydrAMINE 50 MG/1 ML VIAL ONE ×2 (19:08→20:33)
[2017-07-01] MEDS ORDERED: HYDROMORPHONE 2 MG/1 ML DISP.SYRIN ONE ×2 (19:09→20:33)
--- NOTE | 2017-07-01 20:26 | NUR ---
Patient discharged to home in stable conditon. Written and verbal after care instructions given. Patient verbalizes understanding of instructions. Ambulated from ER with stable gait. Patient does not drive. All belongings with patient.
[2017-07-01 20:28] VITALS: BP 99/78
== END 2017-07-01 20:29 | disposition home or self-care (01) ==
LOC: ER 17:43
DX: D57.00 Hb-SS disease with crisis, unspecified (principal); Z86.73 Personal history of transient ischemic attack (TIA), and cerebral infarction without residual deficits; Z88.1 Allergy status to other antibiotic agents; Z88.8 Allergy status to other drugs, medicaments and biological substances; Z90.49 Acquired absence of other specified parts of digestive tract
CPT/HCPCS: A4663; J1170; J1200; J7030

== ENCOUNTER 2017-08-14 20:28 | Inpatient (IN) | payer MEDICAID ==
[~2017-08-14] VITALS: Ht 167.6 cm; Wt 68.0 kg
[2017-08-14] MEDS ORDERED: FOLI1TAB16 PO (20:56)
[2017-08-14] MEDS ORDERED: HYDROMORPHONE 1 MG/1 ML DISP.SYRIN IV ONE ×2 (21:00→22:30)
[2017-08-14] MEDS ORDERED: diphenhydrAMINE 50 MG/1 ML VIAL IV ONE ×2 (21:00→22:30)
[2017-08-14] MEDS ORDERED: HYDROMORPHONE 2 MG/1 ML DISP.SYRIN ONE ×2 (21:39→22:49)
[2017-08-14] MEDS ORDERED: diphenhydrAMINE 50 MG/1 ML VIAL ONE ×2 (21:39→22:48)
[2017-08-14 22:25] LABS: BASOPHILS # (AUTO) 0.1 K/uL (0.0-8.0); BASOPHILS % (AUTO) 0.8 % (0.0-2.0); EOSINOPHILS # (AUTO) 2.2 K/uL (0.0-0.7); EOSINOPHILS % (AUTO) 14.4 % (0.0-7.0); HEMATOCRIT 25.9 % (31.2-41.9); HEMOGLOBIN 9.3 g/dL (10.9-14.3); LYMPHOCYTES # (AUTO) 5.2 K/uL (20.0-40.0); LYMPHOCYTES % (AUTO) 34.2 % (20.5-51.5); MEAN CORPUSCULAR HEMOGLOBIN 32.4 uug (24.7-32.8); MEAN CORPUSCULAR HGB CONC 36 g/dL (32.3-35.6); MEAN CORPUSCULAR VOLUME 90.1 fL (75.5-95.3); MONOCYTES # (AUTO) 2.2 K/uL (2.0-10.0); MONOCYTES % (AUTO) 14.6 % (0.0-11.0); NEUTROPHILS # (AUTO) 5.5 K/uL (1.8-8.9); PLATELET COUNT (AUTO) 435 K/uL (179-408); RED BLOOD CELL COUNT(AUTO) 2.88 MIL/uL (3.63-4.92); WHITE BLOOD COUNT (AUTO) 15.1 K/uL (3.8-11.8)
[2017-08-14 22:36] LABS: BILIRUBIN,TOTAL 1.9 mg/dL (0.2-1.0); CREATININE 0.7 mg/dL (0.6-1.3); POTASSIUM 4.3 mmol/L (3.5-5.1); TOTAL PROTEIN, SERUM 7.8 g/dL (6.4-8.2)
[2017-08-15] VITALS: BP 134/88
[2017-08-15] MEDS ORDERED: Z GUARD REMEDY PASTE 57 GM TUBE TOP PRN (00:15)
[2017-08-15] MEDS ORDERED: diphenhydrAMINE 50 MG/1 ML VIAL IV ONE (00:15)
[2017-08-15] MEDS ORDERED: HYDROMORPHONE 1 MG/1 ML DISP.SYRIN IV PRN (00:15)
[2017-08-15] MEDS ORDERED: MAGNESIUM HYDROXIDE 30 ML LIQUID UDC PO PRN (00:15)
[2017-08-15] MEDS ORDERED: ONDANSETRON 4 MG/2 ML VIAL IV PRN (00:15)
[2017-08-15] MEDS ORDERED: ACETAMINOPHEN 325 MG TABLET PO PRN (00:15)
[2017-08-15] MEDS ORDERED: diphenhydrAMINE 50 MG/1 ML VIAL ONE (01:13)
[2017-08-15] MEDS: IV NS 1000 ML 1,000 ML IV PRN ×3 (02:17→18:47)
[2017-08-15] MEDS ORDERED: HYDROMORPHONE 2 MG/1 ML DISP.SYRIN ONE (02:30)
[2017-08-15] MEDS: HYDROMORPHONE 2 MG/1 ML DISP.SYRIN IV PRN ×8 (02:42→20:47)
[2017-08-15 04:00] VITALS: BP 149/95
[2017-08-15] MEDS ORDERED: HYDROXYUREA 500 MG CAPSULE PO SCH (09:00)
[2017-08-15] MEDS ORDERED: FOLIC ACID 1 MG in IV DEXTROSE 5% 50 ML IV SCH ×2 (09:00→12:15)
[2017-08-15 11:30] VITALS: BP 119/65
[2017-08-15 12:09] LABS: *BILIRUBIN,URIN NEGATIVE (NEGATIVE); *BLOOD, URINE NEGATIVE (NEGATIVE); *CLARITY,URINE CLEAR (CLEAR); *COLOR,URINE YELLOW (YELLOW); *KETONES,URINE NEGATIVE (NEGATIVE); *PROTEIN,URINE NEGATIVE (NEGATIVE); *UROBILINOGEN,URINE 0.2 E.U./dl (NORMAL); LEUKOCYTE ESTERASE ,URINE NEGATIVE (NEGATIVE); NITRITE, URINE NEGATIVE (NEGATIVE); UGLUCOSE NEGATIVE (NEGATIVE)
[2017-08-15 12:14] LABS: BACTERIA,URINE NONE SEEN /HPF (NONE SEEN); RBC,URINE 0-3 /HPF (0-3); SQUAMOUS EPITHELIAL CELL,UR FEW /HPF (NONE SEEN); WBC,URINE 0-3 /HPF (0-3)
[2017-08-15] MEDS ORDERED: METOCLOPRAMIDE HCL 5 MG TABLET PO PRN (15:45)
[2017-08-15] MEDS ORDERED: diphenhydrAMINE 25 MG CAP PO PRN (16:00)
[2017-08-15 19:00] VITALS: BP 127/78
[2017-08-15] MEDS: ATORVASTATIN 20 MG TABLET PO SCH (20:46)
[2017-08-15] MEDS: ENOXAPARIN SODIUM 40 MG/0.4 ML DISP.SYRIN SQ SCH (20:51)
[2017-08-16] MEDS: HYDROMORPHONE 2 MG/1 ML DISP.SYRIN IV PRN ×8 (00:14→22:41)
[2017-08-16] MEDS: IV NS 1000 ML 1,000 ML IV PRN ×3 (01:20→15:04)
[2017-08-16 04:00] VITALS: BP 121/74
[2017-08-16 06:16] LABS: CARBON DIOXIDE 22 mmol/L (21-32); CHLORIDE 104 mmol/L (98-107); CHOLESTEROL 199 mg/dL (<200); CREATININE 0.6 mg/dL (0.6-1.3); GLUCOSE 144 mg/dL (74-106); HDL CHOLESTEROL 30 mg/dL (40-60); MAGNESIUM 1.5 mg/dL (1.8-2.4); PHOSPHOROUS 3.8 mg/dL (2.5-4.9); POTASSIUM 3.8 mmol/L (3.5-5.1); TRIGLYCERIDES 195 MG/DL (30-150); UREA NITROGEN, BLOOD 12 mg/dL (7-18)
[2017-08-16 06:30] LABS: BASOPHILS # (AUTO) 0.1 K/uL (0.0-8.0); BASOPHILS % (AUTO) 1.1 % (0.0-2.0); EOSINOPHILS # (AUTO) 1.2 K/uL (0.0-0.7); EOSINOPHILS % (AUTO) 11.2 % (0.0-7.0); HEMATOCRIT 21.9 % (31.2-41.9); LYMPHOCYTES # (AUTO) 3.5 K/uL (20.0-40.0); LYMPHOCYTES % (AUTO) 32.1 % (20.5-51.5); MEAN CORPUSCULAR HEMOGLOBIN 33.2 uug (24.7-32.8); MEAN CORPUSCULAR HGB CONC 37 g/dL (32.3-35.6); MEAN CORPUSCULAR VOLUME 90.2 fL (75.5-95.3); MONOCYTES # (AUTO) 1.6 K/uL (2.0-10.0); MONOCYTES % (AUTO) 14.6 % (0.0-11.0); NEUTROPHILS # (AUTO) 4.4 K/uL (1.8-8.9); PLATELET COUNT (AUTO) 381 K/uL (179-408); WHITE BLOOD COUNT (AUTO) 10.7 K/uL (3.8-11.8)
[2017-08-16 06:41] LABS: RED BLOOD CELL COUNT(AUTO) 2.42 MIL/uL (3.63-4.92)
[2017-08-16] MEDS ORDERED: HYDROXYUREA 500 MG CAPSULE PO SCH ×2 (09:00→09:20)
[2017-08-16] MEDS: ASPIRIN 325 MG TABLET PO SCH (09:15)
[2017-08-16] MEDS: FOLIC ACID 1 MG TABLET PO SCH (09:15)
[2017-08-16] MEDS: HYDROXYUREA 500 MG CAPSULE PO SCH (10:03)
[2017-08-16 11:09] VITALS: BP 129/75
[2017-08-16] MEDS: diphenhydrAMINE 50 MG/1 ML VIAL IV PRN ×2 (13:07→19:40)
[2017-08-16] MEDS: MAGNESIUM SULFATE/D5W 100 ML IV SCH ×2 (15:50→16:50)
[2017-08-16 20:00] VITALS: BP 142/93
[2017-08-16] MEDS: ENOXAPARIN SODIUM 40 MG/0.4 ML DISP.SYRIN SQ SCH (20:57)
[2017-08-16] MEDS: ATORVASTATIN 20 MG TABLET PO SCH (20:58)
[2017-08-17] MEDS: IV NS 1000 ML 1,000 ML IV PRN (00:31)
[2017-08-17 00:44] VITALS: BP 140/83
[2017-08-17] MEDS: diphenhydrAMINE 50 MG/1 ML VIAL IV PRN ×2 (01:56→08:45)
[2017-08-17] MEDS: HYDROMORPHONE 2 MG/1 ML DISP.SYRIN IV PRN ×4 (01:56→11:49)
[2017-08-17 05:38] VITALS: BP 132/56
[2017-08-17 06:32] LABS: BASOPHILS # (AUTO) 0.1 K/uL (0.0-8.0); BASOPHILS % (AUTO) 0.7 % (0.0-2.0); EOSINOPHILS % (AUTO) 7.8 % (0.0-7.0); HEMATOCRIT 21.9 % (31.2-41.9); HEMOGLOBIN 7.9 g/dL (10.9-14.3); LYMPHOCYTES # (AUTO) 4.2 K/uL (20.0-40.0); LYMPHOCYTES % (AUTO) 33.4 % (20.5-51.5); MEAN CORPUSCULAR HEMOGLOBIN 32.4 uug (24.7-32.8); MEAN CORPUSCULAR HGB CONC 36 g/dL (32.3-35.6); MONOCYTES # (AUTO) 1.5 K/uL (2.0-10.0); MONOCYTES % (AUTO) 12.2 % (0.0-11.0); NEUTROPHILS # (AUTO) 5.8 K/uL (1.8-8.9); NEUTROPHILS % (AUTO) 45.9 % (38.5-71.5); PLATELET COUNT (AUTO) 374 K/uL (179-408); WHITE BLOOD COUNT (AUTO) 12.7 K/uL (3.8-11.8)
[2017-08-17 06:39] LABS: RED BLOOD CELL COUNT(AUTO) 2.43 MIL/uL (3.63-4.92)
[2017-08-17 06:48] LABS: CARBON DIOXIDE 23 mmol/L (21-32); CHLORIDE 104 mmol/L (98-107); CREATININE 0.6 mg/dL (0.6-1.3); GLUCOSE 131 mg/dL (74-106); MAGNESIUM 1.8 mg/dL (1.8-2.4); POTASSIUM 3.9 mmol/L (3.5-5.1); UREA NITROGEN, BLOOD 11 mg/dL (7-18)
[2017-08-17] MEDS: FOLIC ACID 1 MG TABLET PO SCH (08:43)
[2017-08-17] MEDS: ASPIRIN 325 MG TABLET PO SCH (08:43)
[2017-08-17] MEDS: HYDROXYUREA 500 MG CAPSULE PO SCH (08:43)
[2017-08-17 11:30] VITALS: BP 146/87
[2017-08-17 12:12] LABS: HEPATITIS A AB, TOTAL Positive (Negative)
== END 2017-08-17 13:20 | disposition home or self-care (01) | DRG 662 ==
LOC: ER 20:30 → TELE 08-15 01:01
PROVIDERS: ADMIT Internal Medicine; ATTEND Registered Nurse
DX: D57.00 Hb-SS disease with crisis, unspecified (principal); E87.1 Hypo-osmolality and hyponatremia; D72.828 Other elevated white blood cell count; R07.9 Chest pain, unspecified; Z88.1 Allergy status to other antibiotic agents; Z90.49 Acquired absence of other specified parts of digestive tract; Z88.6 Allergy status to analgesic agent; Z83.2 Family history of diseases of the blood and blood-forming organs and certain disorders involving the immune mechanism; Z86.73 Personal history of transient ischemic attack (TIA), and cerebral infarction without residual deficits; G89.29 Other chronic pain; Z91.19 Patient's noncompliance with other medical treatment and regimen; R79.89 Other specified abnormal findings of blood chemistry
CPT/HCPCS: 36415; 70030-TC; 71045; 83735; 84100; 84703; 85025; 86704; 86708; 86803; 87040; 87086; 93005; A4663; J1170; J1200; J1650; J3475; J3490; J7030; J7060

== ENCOUNTER 2017-09-10 14:49 | Emergency (ER) | payer MEDICAID ==
[~2017-09-10] VITALS: Ht 167.6 cm; Wt 68.0 kg
[~2017-09-10 14:49] MED LIST changes: -DAPT500V2 IV; -DIPH50CA37 PO; +FOLI1TAB16 PO; -HYDR4TAB4 PO; -PROM25TA15 PO; -[UNRECOGNIZED DRUG - REMARK]
[2017-09-10] MEDS ORDERED: HYDROMORPHONE 2 MG/1 ML DISP.SYRIN ONE ×2 (15:58→17:37)
[2017-09-10] MEDS ORDERED: diphenhydrAMINE 50 MG/1 ML VIAL ONE ×2 (15:58→17:37)
[2017-09-10] MEDS ORDERED: diphenhydrAMINE 50 MG/1 ML VIAL IV ONE ×2 (16:00→17:30)
[2017-09-10] MEDS ORDERED: HYDROMORPHONE 1 MG/1 ML DISP.SYRIN IV ONE ×2 (16:00→17:30)
--- NOTE | 2017-09-10 18:09 | NUR ---
MSE COMPLETED. PT D/C'D HOME, ACI GIVEN. PT AMBULATED W/O DIFF/TOOK ALL BELONGINGS.
[2017-09-10 18:10] VITALS: BP 125/102
== END 2017-09-10 18:15 | disposition home or self-care (01) ==
LOC: ER 14:49
DX: F11.23 Opioid dependence with withdrawal (principal); Z86.73 Personal history of transient ischemic attack (TIA), and cerebral infarction without residual deficits; Z88.2 Allergy status to sulfonamides; Z90.49 Acquired absence of other specified parts of digestive tract; Z88.1 Allergy status to other antibiotic agents; Z88.8 Allergy status to other drugs, medicaments and biological substances; Z79.899 Other long term (current) drug therapy
CPT/HCPCS: A4663; J1170; J1200

== ENCOUNTER 2017-09-19 14:09 | Emergency (ER) | payer MEDICAID ==
[~2017-09-19] VITALS: Ht 167.6 cm; Wt 68.0 kg
--- NOTE | 2017-09-19 14:37 | NUR ---
Patient is resting comfortably on the gurney on her right side, NAD, respiration:easy, pending MD evaluation@this time
--- NOTE | 2017-09-19 14:58 | NUR ---
MD is at bedside evaluating the patient, pending MD orders at this time.
[2017-09-19] MEDS ORDERED: diphenhydrAMINE 50 MG/1 ML VIAL IV ONE ×2 (15:15→16:45)
[2017-09-19] MEDS ORDERED: IV NORMAL SALINE 1000 ML BAG IV ONE (15:15)
[2017-09-19] MEDS ORDERED: HYDROMORPHONE 1 MG/1 ML DISP.SYRIN IV ONE ×3 (15:15→18:00)
[2017-09-19] MEDS ORDERED: diphenhydrAMINE 50 MG/1 ML VIAL ONE ×2 (15:23→16:48)
[2017-09-19] MEDS ORDERED: HYDROMORPHONE 4 MG/1 ML DISP.SYRIN ONE ×3 (15:24→17:52)
[2017-09-19 15:28] LABS: BASOPHILS # (AUTO) 0.2 K/uL (0.0-8.0); BASOPHILS % (AUTO) 1.6 % (0.0-2.0); EOSINOPHILS # (AUTO) 0.5 K/uL (0.0-0.7); EOSINOPHILS % (AUTO) 5.3 % (0.0-7.0); HEMATOCRIT 24.4 % (31.2-41.9); LYMPHOCYTES % (AUTO) 38.5 % (20.5-51.5); MEAN CORPUSCULAR HEMOGLOBIN 37.1 uug (24.7-32.8); MEAN CORPUSCULAR HGB CONC 37 g/dL (32.3-35.6); MEAN CORPUSCULAR VOLUME 100.5 fL (75.5-95.3); MONOCYTES # (AUTO) 1.2 K/uL (2.0-10.0); MONOCYTES % (AUTO) 12.1 % (0.0-11.0); NEUTROPHILS # (AUTO) 4.4 K/uL (1.8-8.9); NEUTROPHILS % (AUTO) 42.5 % (38.5-71.5); PLATELET COUNT (AUTO) 293 K/uL (179-408); WHITE BLOOD COUNT (AUTO) 10.3 K/uL (3.8-11.8)
--- NOTE | 2017-09-19 15:29 | NUR ---
Lights dimmed & extra warm blankets on the patient per patient's request. Patient is now watching TV reruns ("Friends") on her personal electronic device. Blood was drawn from her PORT catheter, pending results@this time.
[2017-09-19 15:31] LABS: RED BLOOD CELL COUNT(AUTO) 2.42 MIL/uL (3.63-4.92)
[2017-09-19 15:35] LABS: CARBON DIOXIDE 28 mmol/L (21-32); CHLORIDE 103 mmol/L (98-107); CREATININE 0.5 mg/dL (0.6-1.3); GLUCOSE 82 mg/dL (74-106); POTASSIUM 3.9 mmol/L (3.5-5.1); UREA NITROGEN, BLOOD 10 mg/dL (7-18)
[2017-09-19 16:04] LABS: EOSINOPHILS % (MANUAL) 4 % (0-8); LYMPHOCYTES % (MANUAL) 40 % (20-40); MONOCYTES % (MANUAL) 11 % (2-10); NEUTROPHILS % (MANUAL) 45 % (42-75)
[2017-09-19 16:06] LABS: BAND % (MANUAL) 0 % (0-10)
--- NOTE | 2017-09-19 16:26 | NUR ---
"Can I more Dilaudid & Benadryl?" per patient's verbalization, MD aware-pending orders
--- NOTE | 2017-09-19 17:33 | NUR ---
Patient is now eating snacks from the hospital provided snacks cart, NAD, deep breathing was encouraged. Patient says "I always have low oxygen level." Spo2=88-low 90's at room air, monitored closely.
--- NOTE | 2017-09-19 17:56 | NUR ---
Patient discharged to home in stable conditon. Written and verbal after care instructions given to patient. Patient verbalizes understanding of instructions.
--- NOTE | 2017-09-19 17:58 | NUR ---
Patient ambulated out of our ER with brisk steady gait.
== END 2017-09-19 17:58 | disposition home or self-care (01) ==
LOC: ER 14:10
DX: D57.00 Hb-SS disease with crisis, unspecified (principal); Z90.49 Acquired absence of other specified parts of digestive tract; Z86.73 Personal history of transient ischemic attack (TIA), and cerebral infarction without residual deficits; Z88.2 Allergy status to sulfonamides; Z88.1 Allergy status to other antibiotic agents; Z88.8 Allergy status to other drugs, medicaments and biological substances; Z79.899 Other long term (current) drug therapy
CPT/HCPCS: 36415; 85025; A4663; J1170; J1200

== ENCOUNTER 2017-10-16 11:58 | Emergency (ER) | payer MEDICAID ==
[~2017-10-16] VITALS: Ht 167.6 cm; Wt 68.0 kg
[2017-10-16] MEDS ORDERED: RIVA10TA PO (12:10)
[2017-10-16] MEDS ORDERED: MORPHINE SULFATE 4 MG/1 ML DISP.SYRIN IV ONE ×2 (12:45→14:15)
[2017-10-16] MEDS ORDERED: HYDROMORPHONE 1 MG/1 ML DISP.SYRIN IV ONE (12:45)
[2017-10-16] MEDS ORDERED: METOCLOPRAMIDE HCL 10 MG/2 ML VIAL IV ONE (12:45)
[2017-10-16] MEDS ORDERED: IV NORMAL SALINE 1000 ML BAG IV ONE (12:45)
[2017-10-16] MEDS ORDERED: MORPHINE SULFATE 4 MG/1 ML DISP.SYRIN ONE ×2 (12:49→14:34)
[2017-10-16] MEDS ORDERED: METOCLOPRAMIDE HCL 10 MG/2 ML VIAL ONE (12:50)
[2017-10-16] MEDS ORDERED: diphenhydrAMINE 50 MG/1 ML VIAL ONE ×2 (13:07→14:34)
[2017-10-16 13:09] LABS: BASOPHILS # (AUTO) 0.2 K/uL (0.0-8.0); BASOPHILS % (AUTO) 1.5 % (0.0-2.0); EOSINOPHILS # (AUTO) 0.7 K/uL (0.0-0.7); EOSINOPHILS % (AUTO) 5.1 % (0.0-7.0); HEMATOCRIT 21.3 % (31.2-41.9); HEMOGLOBIN 7.5 g/dL (10.9-14.3); LYMPHOCYTES # (AUTO) 5.3 K/uL (20.0-40.0); LYMPHOCYTES % (AUTO) 36.6 % (20.5-51.5); MEAN CORPUSCULAR HEMOGLOBIN 30.8 uug (24.7-32.8); MEAN CORPUSCULAR HGB CONC 35 g/dL (32.3-35.6); MEAN CORPUSCULAR VOLUME 87.8 fL (75.5-95.3); MONOCYTES # (AUTO) 1.6 K/uL (2.0-10.0); MONOCYTES % (AUTO) 10.6 % (0.0-11.0); NEUTROPHILS # (AUTO) 6.7 K/uL (1.8-8.9); NEUTROPHILS % (AUTO) 46.2 % (38.5-71.5); PLATELET COUNT (AUTO) 638 K/uL (179-408); WHITE BLOOD COUNT (AUTO) 14.6 K/uL (3.8-11.8)
--- NOTE | 2017-10-16 13:09 | NUR ---
PT IS IN ROOM #2B. DR MALDONADO EVALUATED THE PT.
[2017-10-16 13:13] LABS: CARBON DIOXIDE 26 mmol/L (21-32); CHLORIDE 104 mmol/L (98-107); CREATININE 0.6 mg/dL (0.6-1.3); GLUCOSE 119 mg/dL (74-106); POTASSIUM 3.3 mmol/L (3.5-5.1); UREA NITROGEN, BLOOD 6 mg/dL (7-18)
[2017-10-16] MEDS ORDERED: diphenhydrAMINE 50 MG/1 ML VIAL IV ONE ×2 (13:15→14:15)
[2017-10-16 13:16] LABS: RED BLOOD CELL COUNT(AUTO) 2.42 MIL/uL (3.63-4.92)
[2017-10-16 13:19] LABS: ALANINE AMINOTRANSFERASE 55 U/L (14-59); ALKALINE PHOSPHATASE 138 U/L (50-136); ASPARTATE AMINOTRANSFERASE 48 U/L (15-37); BILIRUBIN,DIRECT 0.3 mg/dL (0.0-0.2); BILIRUBIN,TOTAL 1.3 mg/dL (0.2-1.0); LIPASE 171 U/L (73-393)
[2017-10-16] MEDS ORDERED: IV NORMAL SALINE 100 ML ONE (13:39)
[2017-10-16] MEDS ORDERED: IOHEXOL 300MG/ML 100 ML INFUS..BTL ONE (13:39)
[2017-10-16 14:18] LABS: EOSINOPHILS % (MANUAL) 6 % (0-8); LYMPHOCYTES % (MANUAL) 23 % (20-40); MONOCYTES % (MANUAL) 14 % (2-10); NEUTROPHILS % (MANUAL) 57 % (42-75)
--- NOTE | 2017-10-16 15:39 | NUR ---
PT WAS D/C TO HOME. D/C INSTRUCTIONS GIVEN TO THE PT. PT DENIES PAIN. NO S/S OF DISTRESS.
[2017-10-16 15:41] VITALS: BP 142/85
== END 2017-10-16 15:44 | disposition home or self-care (01) ==
LOC: ER 11:58
DX: D57.00 Hb-SS disease with crisis, unspecified (principal); R10.84 Generalized abdominal pain; Z90.49 Acquired absence of other specified parts of digestive tract; Z88.1 Allergy status to other antibiotic agents; Z88.2 Allergy status to sulfonamides; Z88.8 Allergy status to other drugs, medicaments and biological substances; Z79.899 Other long term (current) drug therapy
CPT/HCPCS: 36415; 70030-TC; 71045; 83690; 84703; 85025; 85730; 93005; A4663; J1200; J2270; J2765; J3490; J7030; Q9967

== ENCOUNTER 2017-11-11 18:10 | Emergency (ER) | payer MEDICAID ==
[~2017-11-11] VITALS: Ht 167.6 cm; Wt 63.5 kg
[~2017-11-11 18:10] MED LIST changes: +RIVA10TA PO
--- NOTE | 2017-11-11 18:25 | NUR ---
ADMIT PT IN RM 2B FROM HOME WITH A CHIEF C/O GENERALIZED PAIN FROM SICKLE CELL CRISIS. AWAKE, ALERT AND ORIENTEDX3. PT HAS A PORTACATH WITH IV ACCESS IN PLACE AND PATENT ON THE RIGHT SIDE OF HER CHEST.
--- NOTE | 2017-11-11 18:33 | NUR ---
SEEN AND EXAMINED BY MD WITH NEW ORDERS FOR PAIN.
[2017-11-11] MEDS ORDERED: diphenhydrAMINE 50 MG/1 ML VIAL IV ONE ×3 (18:45→20:30)
[2017-11-11] MEDS ORDERED: HYDROMORPHONE 1 MG/1 ML DISP.SYRIN IV ONE ×3 (18:45→20:30)
[2017-11-11] MEDS ORDERED: IV NORMAL SALINE 1000 ML BAG IV ONE (18:45)
--- NOTE | 2017-11-11 18:50 | NUR ---
STARTED IVF NS 1000ML VIA PRTACATH ORDERED. MEDICATED FOR PAIN WITH DILAUDID 2MG SLOW IVP AND FOLLOWED WITH BENADRYL 50MG SLOW IVP FOR C/O NAUSEA.
[2017-11-11] MEDS ORDERED: diphenhydrAMINE 50 MG/1 ML VIAL ONE ×3 (18:52→20:32)
[2017-11-11] MEDS ORDERED: HYDROMORPHONE 2 MG/1 ML DISP.SYRIN ONE ×4 (18:52→20:32)
--- NOTE | 2017-11-11 19:05 | NUR ---
REPORT GIVEN TO FER DUMONT
--- NOTE | 2017-11-11 19:29 | NUR ---
PT IN BED. PT A&OX4. PT IS CALM AND COOPERATIVE. PT BEGAN TO EXPERIENCE LOWERED O2 PERCENTAGE. MADE AWARE. PT PLACED ON 1 LT O2.
--- NOTE | 2017-11-11 20:18 | NUR ---
PT GIVEN ORANGE JUICE AND ICE CHIPS REQUESTED BY PT
--- NOTE | 2017-11-11 22:10 | NUR ---
Patient discharged to home in stable conditon. Written and verbal after care instructions given. Patient verbalizes understanding of instructions. Patient reported a reduced level of pain prior to discharge. Patient stated that she's "hungry and going straight across the street to [employer]." Patient able to ambulate unassisted with steady gait. Patient left with all personal belongings.
[2017-11-11 22:36] VITALS: BP 122/72
== END 2017-11-11 22:10 | disposition home or self-care (01) ==
LOC: ER 18:10
DX: D57.00 Hb-SS disease with crisis, unspecified (principal); Z90.49 Acquired absence of other specified parts of digestive tract; Z88.1 Allergy status to other antibiotic agents; Z88.2 Allergy status to sulfonamides; Z88.8 Allergy status to other drugs, medicaments and biological substances; Z79.899 Other long term (current) drug therapy; Z86.73 Personal history of transient ischemic attack (TIA), and cerebral infarction without residual deficits
CPT/HCPCS: A4663; J1170; J1200; J7030

== ENCOUNTER 2017-11-20 15:53 | Emergency (ER) | payer MEDICAID ==
[~2017-11-20] VITALS: Ht 167.6 cm; Wt 63.5 kg
[2017-11-20] MEDS ORDERED: HYDROMORPHONE 1 MG/1 ML DISP.SYRIN IV ONE (17:45)
[2017-11-20] MEDS ORDERED: diphenhydrAMINE 50 MG/1 ML VIAL IV ONE (17:45)
[2017-11-20] MEDS ORDERED: IV NORMAL SALINE 1000 ML BAG IV ONE (17:45)
[2017-11-20] MEDS ORDERED: HYDROMORPHONE 2 MG/1 ML DISP.SYRIN ONE (17:59)
[2017-11-20] MEDS ORDERED: diphenhydrAMINE 50 MG/1 ML VIAL ONE (17:59)
--- NOTE | 2017-11-20 18:48 | NUR ---
Patient discharged to home in stable conditon. Written and verbal after care instructions given. Patient verbalizes understanding of instructions.
== END 2017-11-20 18:53 | disposition home or self-care (01) ==
LOC: ER 15:55
DX: G89.29 Other chronic pain (principal); Z90.49 Acquired absence of other specified parts of digestive tract; Z88.2 Allergy status to sulfonamides; Z88.1 Allergy status to other antibiotic agents; Z88.8 Allergy status to other drugs, medicaments and biological substances; Z79.899 Other long term (current) drug therapy; Z86.73 Personal history of transient ischemic attack (TIA), and cerebral infarction without residual deficits
CPT/HCPCS: A4663; J1170; J1200; J7030

== ENCOUNTER 2017-12-11 15:42 | Emergency (ER) | payer MEDICAID ==
[~2017-12-11] VITALS: Ht 167.6 cm; Wt 65.8 kg
--- NOTE | 2017-12-11 16:55 | NUR ---
PATIENT WAS SEEN BY DR REYES. PT STATE SHE ATE A BIG MEAL JUST NOW AND HER STOMACH HURTS.
[2017-12-11] MEDS ORDERED: METOCLOPRAMIDE HCL 10 MG/2 ML VIAL IV ONE (17:00)
[2017-12-11] MEDS ORDERED: HYDROMORPHONE HCL 2 MG TABLET PO ONE (17:00)
[2017-12-11] MEDS: IV NORMAL SALINE 1000 ML BAG IV ONE ×2 (17:09→17:14)
[2017-12-11] MEDS ORDERED: HYDROMORPHONE HCL 2 MG TABLET ONE (17:11)
--- NOTE | 2017-12-11 17:15 | NUR ---
I WENT IN THE ROOM TO DRAW HER BLOOD FOR LABS AND GIVE HER THE MEDICATIONS DR REYES ORDERED AND GILMAR STOPPED ME AND STATED "I FEEL TOTALLY GOOD NOW, I DONT NEED ANYTHING EXCEPT THE PAIN MEDICINE". I NOTIFIED DR REYES THAT SHE STATES SHE FEELS BETTER AND IS REFUSING ALL LABS, CT AND MEDS (EXCEPT DILAUDID).
--- NOTE | 2017-12-11 17:17 | NUR ---
DC AND FOLLOW UP INSTRUCTINS GIVEN AND EXPLAINED TO PATIENT WHO STATES HE UNDERSTANDS ALL INSTRUCTIONS.
== END 2017-12-11 17:20 | disposition home or self-care (01) ==
LOC: ER 15:43
DX: G89.29 Other chronic pain (principal); Z90.49 Acquired absence of other specified parts of digestive tract; Z86.73 Personal history of transient ischemic attack (TIA), and cerebral infarction without residual deficits; Z88.1 Allergy status to other antibiotic agents; Z88.8 Allergy status to other drugs, medicaments and biological substances; Z88.2 Allergy status to sulfonamides; Z79.01 Long term (current) use of anticoagulants; Z79.899 Other long term (current) drug therapy
CPT/HCPCS: A4663; J7030

== ENCOUNTER 2018-02-05 11:53 | Emergency (ER) | payer MEDICAID ==
[~2018-02-05] VITALS: Ht 167.6 cm; Wt 65.8 kg
--- NOTE | 2018-02-05 12:05 | NUR ---
ADMIT PT TO RM 1B FROM HOME, AMBULATORY, WITH A CHIEF C/O GENERALIZED BODY ACHES AND PAINS. SEEN AND EXAMINED BY DR REYES WITH NEW ORDERS.
[2018-02-05] MEDS ORDERED: diphenhydrAMINE 50 MG/1 ML VIAL IV ONE ×3 (12:30→17:15)
[2018-02-05] MEDS ORDERED: IV NORMAL SALINE 1000 ML BAG IV ONE (12:30)
[2018-02-05] MEDS ORDERED: HYDROMORPHONE 1 MG/1 ML DISP.SYRIN IV ONE ×3 (12:30→17:15)
--- NOTE | 2018-02-05 12:40 | NUR ---
BLOOD DRAWN VIA PORTACATCH ACCESS OH HER RIGHT CHEST WITH MD ORDER OK TO ACCESS.
--- NOTE | 2018-02-05 12:45 | NUR ---
EKG DONE AND CXR DONE AT THE BEDSIDE.
[2018-02-05 12:47] LABS: BASOPHILS # (AUTO) 0.1 K/uL (0.0-8.0); BASOPHILS % (AUTO) 1.2 % (0.0-2.0); EOSINOPHILS # (AUTO) 0.4 K/uL (0.0-0.7); EOSINOPHILS % (AUTO) 3.8 % (0.0-7.0); HEMATOCRIT 24.8 % (31.2-41.9); HEMOGLOBIN 8.9 g/dL (10.9-14.3); LYMPHOCYTES % (AUTO) 35.6 % (20.5-51.5); MEAN CORPUSCULAR HEMOGLOBIN 31.6 uug (24.7-32.8); MEAN CORPUSCULAR HGB CONC 36 g/dL (32.3-35.6); MEAN CORPUSCULAR VOLUME 87.6 fL (75.5-95.3); MONOCYTES # (AUTO) 1.5 K/uL (2.0-10.0); MONOCYTES % (AUTO) 13.4 % (0.0-11.0); NEUTROPHILS # (AUTO) 5.1 K/uL (1.8-8.9); PLATELET COUNT (AUTO) 313 K/uL (179-408); RED BLOOD CELL COUNT(AUTO) 2.83 MIL/uL (3.63-4.92); WHITE BLOOD COUNT (AUTO) 11.1 K/uL (3.8-11.8)
[2018-02-05 12:56] LABS: CARBON DIOXIDE 23 mmol/L (21-32); CHLORIDE 100 mmol/L (98-107); CREATININE 0.5 mg/dL (0.6-1.3); GLUCOSE 159 mg/dL (74-106); POTASSIUM 3.7 mmol/L (3.5-5.1); UREA NITROGEN, BLOOD 7 mg/dL (7-18)
[2018-02-05 13:03] LABS: ALANINE AMINOTRANSFERASE 69 U/L (14-59); ALKALINE PHOSPHATASE 138 U/L (50-136); ASPARTATE AMINOTRANSFERASE 88 U/L (15-37); BILIRUBIN,DIRECT 0.6 mg/dL (0.0-0.2); BILIRUBIN,TOTAL 2.2 mg/dL (0.2-1.0); TOTAL PROTEIN, SERUM 7.2 g/dL (6.4-8.2)
[2018-02-05] MEDS ORDERED: diphenhydrAMINE 50 MG/1 ML VIAL ONE ×3 (13:15→17:23)
[2018-02-05] MEDS ORDERED: HYDROMORPHONE 2 MG/1 ML DISP.SYRIN ONE ×3 (13:16→17:23)
--- NOTE | 2018-02-05 13:20 | NUR ---
URINE COLLECTED FOR TEST ORDERED.
--- NOTE | 2018-02-05 13:30 | NUR ---
IVF NS STARTED VIA PORTACATH ORDERED.
--- NOTE | 2018-02-05 13:30 | NUR ---
PT MEDICATED WITH BENADRYL 50MG SLOW IVP AND DILAUDID 2MG SLOW IVP FOR C/O BODY PAINS ORDERED. BP 159/73.
[2018-02-05 13:53] LABS: *URINE HCG, QUAL NEGATIVE (NEGATIVE)
--- NOTE | 2018-02-05 17:20 | NUR ---
PT STILL C/O OF GENERALIZED BODY PAINS. MEDICATED WITH DILAUDID 2MG SLOW IVP VIA PORTACATH PER MD ORDER. ALSO GIVEN BENADRYL 50MG SLOW IVP FOR C/O ITCHING.
--- NOTE | 2018-02-05 18:00 | NUR ---
DISCHARGE INSTRUCTION GIVEN TO PT WITH GOOD UNDERSTANDING. DISCHARGED HOME AMBULATORY. PAIN IS RELIVED. CONDITION IS STABLE.
[2018-02-05 18:12] VITALS: BP 140/86
== END 2018-02-05 18:00 | disposition home or self-care (01) ==
LOC: ER 11:55
DX: R07.89 Other chest pain (principal); D57.1 Sickle-cell disease without crisis; Z90.49 Acquired absence of other specified parts of digestive tract; Z88.1 Allergy status to other antibiotic agents; Z88.2 Allergy status to sulfonamides; Z88.8 Allergy status to other drugs, medicaments and biological substances; Z79.899 Other long term (current) drug therapy
CPT/HCPCS: 36415; 70030-TC; 71045; 83605; 84703; 85025; 85730; 87040; 93005; A4663; J1170; J1200; J7030

== ENCOUNTER 2018-05-01 13:36 | Emergency (ER) | payer MEDICAID ==
[~2018-05-01] VITALS: Ht 167.6 cm; Wt 68.0 kg
[2018-05-01] MEDS ORDERED: HYDR4TAB4 PO (13:51)
[2018-05-01] MEDS ORDERED: IV NORMAL SALINE 1000 ML BAG IV ONE (15:00)
[2018-05-01] MEDS ORDERED: HYDROMORPHONE 1 MG/1 ML DISP.SYRIN IV ONE ×2 (15:00→16:30)
[2018-05-01] MEDS ORDERED: LOPERAMIDE HCL 2 MG CAPSULE PO ONE (15:15)
[2018-05-01] MEDS ORDERED: diphenhydrAMINE 50 MG/1 ML VIAL IV ONE (15:15)
[2018-05-01] MEDS ORDERED: METOCLOPRAMIDE HCL 10 MG/2 ML VIAL IV ONE (15:15)
[2018-05-01 15:39] LABS: BASOPHILS # (AUTO) 0.2 K/uL (0.0-8.0); BASOPHILS % (AUTO) 1.3 % (0.0-2.0); EOSINOPHILS # (AUTO) 0.2 K/uL (0.0-0.7); EOSINOPHILS % (AUTO) 1.6 % (0.0-7.0); HEMATOCRIT 24.8 % (31.2-41.9); HEMOGLOBIN 8.6 g/dL (10.9-14.3); LYMPHOCYTES # (AUTO) 3.4 K/uL (20.0-40.0); LYMPHOCYTES % (AUTO) 24.8 % (20.5-51.5); MEAN CORPUSCULAR HEMOGLOBIN 30.9 uug (24.7-32.8); MEAN CORPUSCULAR HGB CONC 35 g/dL (32.3-35.6); MEAN CORPUSCULAR VOLUME 89.4 fL (75.5-95.3); MONOCYTES # (AUTO) 1.5 K/uL (2.0-10.0); MONOCYTES % (AUTO) 10.7 % (0.0-11.0); NEUTROPHILS # (AUTO) 8.3 K/uL (1.8-8.9); NEUTROPHILS % (AUTO) 61.6 % (38.5-71.5); PLATELET COUNT (AUTO) 584 K/uL (179-408); RED BLOOD CELL COUNT(AUTO) 2.78 MIL/uL (3.63-4.92); WHITE BLOOD COUNT (AUTO) 13.5 K/uL (3.8-11.8)
[2018-05-01] MEDS ORDERED: HYDROMORPHONE 1 MG/1 ML DISP.SYRIN ONE ×2 (15:39→16:27)
[2018-05-01] MEDS ORDERED: LOPERAMIDE HCL 2 MG CAPSULE ONE (15:40)
[2018-05-01] MEDS ORDERED: METOCLOPRAMIDE HCL 10 MG/2 ML VIAL ONE (15:40)
[2018-05-01 15:45] LABS: CARBON DIOXIDE 24 mmol/L (21-32); CHLORIDE 103 mmol/L (98-107); CREATININE 0.6 mg/dL (0.6-1.3); GLUCOSE 99 mg/dL (74-106); POTASSIUM 3.7 mmol/L (3.5-5.1); UREA NITROGEN, BLOOD 7 mg/dL (7-18)
[2018-05-01 15:52] LABS: ALANINE AMINOTRANSFERASE 62 U/L (14-59); ALKALINE PHOSPHATASE 142 U/L (50-136); ASPARTATE AMINOTRANSFERASE 62 U/L (15-37); BILIRUBIN,DIRECT 0.4 mg/dL (0.0-0.2); BILIRUBIN,TOTAL 1.9 mg/dL (0.2-1.0); LIPASE 131 U/L (73-393); TOTAL PROTEIN, SERUM 8.2 g/dL (6.4-8.2)
[2018-05-01] MEDS ORDERED: diphenhydrAMINE 50 MG CAPSULE PO ONE (16:00)
[2018-05-01] MEDS ORDERED: diphenhydrAMINE 50 MG CAPSULE ONE (16:04)
--- NOTE | 2018-05-01 16:59 | NUR ---
PT WAS EVALUATED BY DR RUSSO. PT WAS D/C TO HOME. D/C INSTRUCTIONS GIVEN TO THE PT.
[2018-05-01 17:02] VITALS: BP 136/65
== END 2018-05-01 17:17 | disposition home or self-care (01) ==
LOC: ER 13:36
DX: D57.00 Hb-SS disease with crisis, unspecified (principal); R19.7 Diarrhea, unspecified; Z88.1 Allergy status to other antibiotic agents; Z88.8 Allergy status to other drugs, medicaments and biological substances; Z88.2 Allergy status to sulfonamides
CPT/HCPCS: 36415; 80048; 80076; 83690; 85025; 96361; 96374; 96375; 96376; 99284; J1170 ×2; J2765; Q0163; A4663; J7030

== ENCOUNTER 2019-01-21 11:08 | Emergency (ER) | payer MEDICAID ==
[~2019-01-21] VITALS: Ht 167.6 cm; Wt 66.2 kg
[~2019-01-21 11:08] MED LIST changes: +HYDR4TAB4 PO
--- NOTE | 2019-01-21 11:16 | NUR ---
PARKER NIELSEN AT BEDSIDE FOR MSE.
[2019-01-21] MEDS ORDERED: HYDROMORPHONE 1 MG/1 ML DISP.SYRIN IV ONE ×2 (11:30→12:00)
[2019-01-21] MEDS ORDERED: diphenhydrAMINE 50 MG/1 ML VIAL IV ONE ×2 (11:30→12:00)
[2019-01-21] MEDS ORDERED: HYDROMORPHONE 2 MG/1 ML DISP.SYRIN ONE ×2 (11:31→12:06)
[2019-01-21] MEDS ORDERED: diphenhydrAMINE 50 MG/1 ML VIAL ONE ×2 (11:31→12:08)
--- NOTE | 2019-01-21 12:42 | NUR ---
Patient discharged to home in stable conditon. Written and verbal after care instructions given. Patient verbalizes understanding of instructions. ALL BELONGINGS W/ PT. PT SELF-AMBULATED W/O DIFFICULTY. PT STATES SHE WILL BE DRIVEN HOME BY COUSIN IN PRIVATE VEHICLE.
[2019-01-21 12:43] VITALS: BP 131/70
== END 2019-01-21 12:43 | disposition home or self-care (01) ==
LOC: ER 11:08
DX: D57.00 Hb-SS disease with crisis, unspecified (principal); M54.5 Low back pain; M79.606 Pain in leg, unspecified; Z90.49 Acquired absence of other specified parts of digestive tract; Z88.2 Allergy status to sulfonamides; Z88.8 Allergy status to other drugs, medicaments and biological substances; Z79.899 Other long term (current) drug therapy; Z86.73 Personal history of transient ischemic attack (TIA), and cerebral infarction without residual deficits
CPT/HCPCS: 96374; 96375; 96376; 99283; J1170 ×2; J1200 ×2; A4663

== ENCOUNTER 2019-08-19 11:35 | Emergency (ER) | payer MEDICAID ==
[~2019-08-19] VITALS: Ht 167.6 cm; Wt 63.5 kg
[2019-08-19] MEDS ORDERED: IV D5 1/2 NS 1000 ML 1,000 ML IV ONE (12:00)
[2019-08-19 12:12] LABS: BASOPHILS # (AUTO) 0.2 K/uL (0.0-8.0); BASOPHILS % (AUTO) 1.2 % (0.0-2.0); EOSINOPHILS # (AUTO) 0.7 K/uL (0.0-0.7); EOSINOPHILS % (AUTO) 4.8 % (0.0-7.0); LYMPHOCYTES # (AUTO) 5.8 K/uL (20.0-40.0); MEAN CORPUSCULAR HEMOGLOBIN 31.2 uug (24.7-32.8); MEAN CORPUSCULAR HGB CONC 35 g/dL (32.3-35.6); MEAN CORPUSCULAR VOLUME 89.2 fL (75.5-95.3); MONOCYTES # (AUTO) 1.5 K/uL (2.0-10.0); MONOCYTES % (AUTO) 9.8 % (0.0-11.0); NEUTROPHILS # (AUTO) 6.7 K/uL (1.8-8.9); NEUTROPHILS % (AUTO) 45.2 % (38.5-71.5); PLATELET COUNT (AUTO) 350 K/uL (179-408); WHITE BLOOD COUNT (AUTO) 14.9 K/uL (3.8-11.8)
--- NOTE | 2019-08-19 12:16 | NUR ---
Patient ambulated with stable gait. Speech is clear, speaks in complete sentences. No acute neuro deficits. A/Ox4. Patient came for c/o "sickle cell crisis" and has pain in her legs and abdomen. Respiratory even and unlabored, no cough no sob. Patient has a portacath on her right anterior chest and is patent and flushing well. No cardiovascular distress noted, all pulses palpable denies any cp. Denies any n/v/d. Patient in bed at lowest position, sr upx2, call light within reach. Safety precautions implemented per protocol..
[2019-08-19 12:17] LABS: HEMATOCRIT 20.9 % (31.2-41.9); HEMOGLOBIN 7.3 g/dL (10.9-14.3); RED BLOOD CELL COUNT(AUTO) 2.35 MIL/uL (3.63-4.92)
[2019-08-19 12:20] LABS: CARBON DIOXIDE 26 mmol/L (21-32); CHLORIDE 102 mmol/L (98-107); CREATININE 0.6 mg/dL (0.6-1.3); GLUCOSE 111 mg/dL (74-106); POTASSIUM 4.1 mmol/L (3.5-5.1); UREA NITROGEN, BLOOD 9 mg/dL (7-18)
[2019-08-19 12:26] LABS: ALANINE AMINOTRANSFERASE 51 U/L (14-59); ALKALINE PHOSPHATASE 149 U/L (50-136); ASPARTATE AMINOTRANSFERASE 72 U/L (15-37); BILIRUBIN,DIRECT 0.6 mg/dL (0.0-0.2); BILIRUBIN,TOTAL 2.6 mg/dL (0.2-1.0); LIPASE 128 U/L (73-393); TOTAL PROTEIN, SERUM 7.2 g/dL (6.4-8.2)
[2019-08-19] MEDS ORDERED: HYDROMORPHONE 1 MG/1 ML DISP.SYRIN IV ONE ×3 (13:00→15:30)
[2019-08-19] MEDS ORDERED: diphenhydrAMINE 50 MG/1 ML VIAL IV ONE ×2 (13:00→15:30)
[2019-08-19] MEDS ORDERED: diphenhydrAMINE 50 MG/1 ML VIAL ONE ×2 (13:02→15:29)
[2019-08-19] MEDS ORDERED: HYDROMORPHONE 1 MG/1 ML DISP.SYRIN ONE ×3 (13:04→15:29)
--- NOTE | 2019-08-19 13:21 | NUR ---
Patient unable to provide urine at this time, ERMD aware.
[2019-08-19] MEDS ORDERED: SWABABLE VALVE TRANSFER SET EA MC ONE (13:46)
[2019-08-19] MEDS ORDERED: IOHEXOL 300MG/ML 100 ML INFUS..BTL ONE (13:46)
[2019-08-19] MEDS ORDERED: IV NORMAL SALINE 250 ML IV ONE (13:46)
[2019-08-19 13:50] LABS: *BILIRUBIN,URIN NEGATIVE (NEGATIVE); *BLOOD, URINE NEGATIVE (NEGATIVE); *CLARITY,URINE CLEAR (CLEAR); *COLOR,URINE YELLOW (YELLOW); *KETONES,URINE NEGATIVE (NEGATIVE); LEUKOCYTE ESTERASE ,URINE NEGATIVE (NEGATIVE); NITRITE, URINE NEGATIVE (NEGATIVE); UGLUCOSE NEGATIVE (NEGATIVE)
[2019-08-19 13:52] LABS: *URINE HCG, QUAL NEGATIVE (NEGATIVE); BACTERIA,URINE NONE SEEN /HPF (NONE SEEN); RBC,URINE 0-3 /HPF (0-3); SQUAMOUS EPITHELIAL CELL,UR FEW /HPF (NONE SEEN); WBC,URINE 0-3 /HPF (0-3)
--- NOTE | 2019-08-19 16:05 | NUR ---
Patient in bed NAD, VSS
--- NOTE | 2019-08-19 16:26 | NUR ---
Patient discharged to home in stable conditon. Written and verbal after care instructions given. Patient verbalizes understanding of instructions. IV removed. Catheter intact and site benign. Pressure and 4x4 gauze applied to site. No bleeding noted. Patient ambulated with stable gait. Instructed patient that she is not allowed to drive d/t the medications administered. Stated she will get a ride from family member home.
[2019-08-19 16:27] VITALS: BP 131/74
== END 2019-08-19 16:27 | disposition home or self-care (01) ==
LOC: ER 11:35
DX: D57.00 Hb-SS disease with crisis, unspecified (principal); D64.9 Anemia, unspecified; R10.9 Unspecified abdominal pain; Z90.49 Acquired absence of other specified parts of digestive tract; Z79.899 Other long term (current) drug therapy; Z88.2 Allergy status to sulfonamides; Z88.1 Allergy status to other antibiotic agents; Z88.8 Allergy status to other drugs, medicaments and biological substances
CPT/HCPCS: 36415; 74177; 80048; 80076; 81000; 81001; 83690; 84484; 84703; 85025; 93005; 96374; 96375; 96376; 99284; J1170 ×3; J1200 ×2; J3490; Q9967; 70030-TC; A4663; J7050

== ENCOUNTER 2019-09-09 11:30 | Emergency (ER) | payer MEDICAID ==
[~2019-09-09] VITALS: Ht 167.6 cm; Wt 65.8 kg
--- NOTE | 2019-09-09 11:46 | NUR ---
PT IS IN ROOM #2B. DR YEN EVALUATED THE PT.
[2019-09-09] MEDS ORDERED: diphenhydrAMINE 50 MG/1 ML VIAL IV ONE ×2 (12:00→14:15)
[2019-09-09] MEDS ORDERED: PROMETHAZINE HCL INJ 12.5 MG in IV DEXTROSE 5% 50 ML IV PRN (12:00)
[2019-09-09] MEDS ORDERED: HYDROMORPHONE 1 MG/1 ML DISP.SYRIN IV ONE ×2 (12:00→14:15)
[2019-09-09 12:10] LABS: BASOPHILS # (AUTO) 0.1 K/uL (0.0-8.0); BASOPHILS % (AUTO) 0.6 % (0.0-2.0); EOSINOPHILS # (AUTO) 0.9 K/uL (0.0-0.7); EOSINOPHILS % (AUTO) 6.4 % (0.0-7.0); HEMATOCRIT 22.5 % (31.2-41.9); LYMPHOCYTES # (AUTO) 4.1 K/uL (20.0-40.0); LYMPHOCYTES % (AUTO) 28.8 % (20.5-51.5); MEAN CORPUSCULAR HGB CONC 36 g/dL (32.3-35.6); MEAN CORPUSCULAR VOLUME 89.7 fL (75.5-95.3); MONOCYTES # (AUTO) 1.6 K/uL (2.0-10.0); MONOCYTES % (AUTO) 11.5 % (0.0-11.0); NEUTROPHILS # (AUTO) 7.4 K/uL (1.8-8.9); NEUTROPHILS % (AUTO) 52.7 % (38.5-71.5); PLATELET COUNT (AUTO) 337 K/uL (179-408); RED BLOOD CELL COUNT(AUTO) 2.51 MIL/uL (3.63-4.92); WHITE BLOOD COUNT (AUTO) 14.1 K/uL (3.8-11.8)
[2019-09-09] MEDS ORDERED: HYDROMORPHONE 1 MG/1 ML DISP.SYRIN ONE (12:15)
[2019-09-09 12:17] LABS: BILIRUBIN,DIRECT 0.4 mg/dL (0.0-0.2); BILIRUBIN,TOTAL 2.7 mg/dL (0.2-1.0); CREATININE 0.7 mg/dL (0.6-1.3); POTASSIUM 3.4 mmol/L (3.5-5.1)
[2019-09-09] MEDS ORDERED: diphenhydrAMINE 50 MG/1 ML VIAL ONE ×2 (12:17→14:23)
[2019-09-09 12:20] LABS: *BILIRUBIN,URIN NEGATIVE (NEGATIVE); *CLARITY,URINE CLEAR (CLEAR); *COLOR,URINE YELLOW (YELLOW); *KETONES,URINE NEGATIVE (NEGATIVE); LEUKOCYTE ESTERASE ,URINE NEGATIVE (NEGATIVE); NITRITE, URINE NEGATIVE (NEGATIVE); UGLUCOSE NEGATIVE (NEGATIVE)
[2019-09-09 12:21] LABS: *BLOOD, URINE TRACE (NEGATIVE)
[2019-09-09 12:28] LABS: *URINE HCG, QUAL NEGATIVE (NEGATIVE); BACTERIA,URINE FEW /HPF (NONE SEEN); SQUAMOUS EPITHELIAL CELL,UR MODERATE /HPF (NONE SEEN)
[2019-09-09] MEDS ORDERED: HYDROMORPHONE 2 MG/1 ML DISP.SYRIN ONE (14:23)
--- NOTE | 2019-09-09 14:53 | NUR ---
PT WAS D/C'd TO HOME AFTER DR YEN RE-EVALUATION. D/C INSTRUCTIONS GIVEN TO THE PT BY DR YEN.
[2019-09-09 14:54] VITALS: BP 131/78
== END 2019-09-09 14:56 | disposition home or self-care (01) ==
LOC: ER 11:30
DX: R10.12 Left upper quadrant pain (principal); M54.9 Dorsalgia, unspecified; D57.00 Hb-SS disease with crisis, unspecified; Z90.49 Acquired absence of other specified parts of digestive tract; Z88.1 Allergy status to other antibiotic agents; Z88.2 Allergy status to sulfonamides; Z88.8 Allergy status to other drugs, medicaments and biological substances; Z86.73 Personal history of transient ischemic attack (TIA), and cerebral infarction without residual deficits
CPT/HCPCS: 36415; 71045; 74176; 80048; 80076; 81000; 81001; 83690; 84703; 85025; 96365; 96375; 96376; 99285; J1170 ×2; J1200 ×2; J2550; J7060; A4663

== ENCOUNTER 2019-10-07 11:47 | Emergency (ER) | payer MEDICAID ==
[~2019-10-07] VITALS: Ht 167.6 cm; Wt 68.0 kg
--- NOTE | 2019-10-07 12:05 | NUR ---
Pt came from home, brought herself into the ER, ambulated with steady gait. Speech is clear, AOX4. c/o: Abdominal and leg discomfort, "bodyache", 5-6/10 that has been going on for three days. At this time, she does not present with neurological deficits. Not in any cardio-respiratory distress. Denies shortness of breath, chest pain, and cap refill >3 seconds. No signs of hypoxia/hypoxemia from her underlying disease. No /GI issues, aside from intermittent nausea. No skin issues. Pt is sitting in bed, bed at lowest position, side rails up x 2. Fall precautions maintained.
--- NOTE | 2019-10-07 12:10 | NUR ---
ER MD at bedside to evaluate patient.
--- NOTE | 2019-10-07 12:20 | NUR ---
Per ER , Dr. Yates (rope laying machine operator) needs to be contacted so that she may discuss patient case.
[2019-10-07] MEDS ORDERED: LIDOCAINE VISCUS 2% 15 ML UDC ONE (12:30)
[2019-10-07] MEDS ORDERED: PANTOPRAZOLE SODIUM 40 MG TABLET.DR PO ONE ×2 (12:30)
[2019-10-07] MEDS ORDERED: MAG HYDROX/AL HYDROX/SIMETH 30 ML LIQUID UDC ONE (12:30)
[2019-10-07] MEDS ORDERED: LIDOCAINE VISCUS 2% 15 ML UDC MM ONE (12:30)
[2019-10-07] MEDS ORDERED: MAG HYDROX/AL HYDROX/SIMETH 30 ML LIQUID UDC PO ONE (12:30)
--- NOTE | 2019-10-07 12:48 | NUR ---
Patient discharged to home in stable conditon. Written and verbal after care instructions given. Patient verbalizes understanding of instructions. Pt able to ambulate with steady gait out of ER.
[2019-10-07 12:51] VITALS: BP 130/80
== END 2019-10-07 12:52 | disposition home or self-care (01) ==
LOC: ER 11:47
DX: R10.10 Upper abdominal pain, unspecified (principal); Z88.6 Allergy status to analgesic agent; Z88.1 Allergy status to other antibiotic agents; Z90.49 Acquired absence of other specified parts of digestive tract
CPT/HCPCS: A4663

== ENCOUNTER 2019-12-02 10:54 | Emergency (ER) | payer MEDICAID ==
[~2019-12-02] VITALS: Ht 167.6 cm; Wt 65.8 kg
--- NOTE | 2019-12-02 11:06 | NUR ---
PT PRESENTED TO ER IN A STABLE CONDITION W/STEADY GAIT C/O LOW BACK PAIN AND ABD PAIN X1 DAY. PT HAS HX OF SICKLE CELL ANEMIA,STROKE, AND OR.PT STATES "IM TAKING DILAUDID AND BENADRYL DAILY, AND I TOOK THEM THIS MORNING AT 6 AM". PT SAYS PAIN HAS GOTTEN WORSE SINCE LAST NIGHT AND THE MEDICATIONS ARE NOT HELPING. PT IS A+OX3, NO NEURO DEFICIT NOTED. NO SOB, NO COUGH. NO CHEST PAIN , A LINE PORT ON THE R CHEST. MONITORS APPLIED. V/S STABLE . PT IN BED SIDE RAILS UPX2, FALL PRECAUTIONS IMPLEMENTED.
--- NOTE | 2019-12-02 11:16 | NUR ---
OR MD IN ROOM EXAMINING FOR EMS.
[2019-12-02] MEDS ORDERED: IV NORMAL SALINE 1000 ML BAG IV ONE (11:30)
[2019-12-02] MEDS ORDERED: diphenhydrAMINE 50 MG/1 ML VIAL IV ONE (11:45)
[2019-12-02] MEDS ORDERED: HYDROMORPHONE 1 MG/1 ML DISP.SYRIN IV ONE (11:45)
[2019-12-02 12:14] LABS: BASOPHILS # (AUTO) 0.2 K/uL (0.0-8.0); BASOPHILS % (AUTO) 1.4 % (0.0-2.0); EOSINOPHILS # (AUTO) 0.7 K/uL (0.0-0.7); EOSINOPHILS % (AUTO) 5.5 % (0.0-7.0); HEMOGLOBIN 8.2 g/dL (10.9-14.3); LYMPHOCYTES % (AUTO) 41.1 % (20.5-51.5); MEAN CORPUSCULAR HEMOGLOBIN 30.2 uug (24.7-32.8); MEAN CORPUSCULAR HGB CONC 34 g/dL (32.3-35.6); MEAN CORPUSCULAR VOLUME 88.9 fL (75.5-95.3); MONOCYTES % (AUTO) 8.1 % (0.0-11.0); NEUTROPHILS # (AUTO) 5.4 K/uL (1.8-8.9); NEUTROPHILS % (AUTO) 43.9 % (38.5-71.5); PLATELET COUNT (AUTO) 448 K/uL (179-408); WHITE BLOOD COUNT (AUTO) 12.3 K/uL (3.8-11.8)
[2019-12-02 12:15] LABS: BILIRUBIN,DIRECT 0.5 mg/dL (0.0-0.2); BILIRUBIN,TOTAL 1.6 mg/dL (0.2-1.0); CREATININE 0.8 mg/dL (0.6-1.3); TOTAL PROTEIN, SERUM 7.3 g/dL (6.4-8.2)
[2019-12-02] MEDS ORDERED: diphenhydrAMINE 50 MG/1 ML VIAL ONE (12:21)
[2019-12-02] MEDS ORDERED: HYDROMORPHONE 2 MG/1 ML DISP.SYRIN ONE (12:26)
--- NOTE | 2019-12-02 13:35 | NUR ---
Patient discharged to home in stable condition. Written and verbal after care instructions given. Patient verbalizes understanding of instructions. Stressed follow up or return to ER for worsening s/s.ALL BELONGINGS W/PATIENT.V/S STABLE.WAS TOLD NOT TO DRIVE. BEING PICKED UP BY ROOMMATE.
[2019-12-02 13:37] VITALS: BP 128/62
== END 2019-12-02 13:38 | disposition home or self-care (01) ==
LOC: ER 10:54
DX: D57.00 Hb-SS disease with crisis, unspecified (principal); Z90.49 Acquired absence of other specified parts of digestive tract; Z86.73 Personal history of transient ischemic attack (TIA), and cerebral infarction without residual deficits; Z86.69 Personal history of other diseases of the nervous system and sense organs
CPT/HCPCS: 36415; 71045; 80048; 80076; 83690; 84702; 85025; 93005; 96361; 96374; 96375; 99285; J1170; J1200; A4663; J7030

== ENCOUNTER 2021-01-31 12:58 | Emergency (ER) | payer MEDICAID, OTHER ==
[~2021-01-31] VITALS: Ht 167.6 cm; Wt 68.0 kg
[~2021-01-31 12:58] MED LIST changes: -FOLI1TAB16 PO; +FOLI1TAB94 PO
--- NOTE | 2021-01-31 13:10 | NUR ---
Dr Zhou at the bedside for MSE.
[2021-01-31] MEDS ORDERED: diphenhydrAMINE 50 MG/1 ML VIAL IV ONE ×2 (13:15→14:15)
[2021-01-31] MEDS ORDERED: IV NORMAL SALINE 1000 ML BAG IV ONE (13:15)
[2021-01-31] MEDS ORDERED: HYDROMORPHONE 1 MG/1 ML DISP.SYRIN IV ONE ×2 (13:15→14:15)
--- NOTE | 2021-01-31 13:20 | NUR ---
RT Port a cath accessed per MD order, angio # [id number], pt tolorated well.
[2021-01-31] MEDS ORDERED: HYDROMORPHONE 2 MG/1 ML DISP.SYRIN ONE ×2 (13:29→14:21)
[2021-01-31] MEDS ORDERED: diphenhydrAMINE 50 MG/1 ML VIAL ONE ×2 (13:29→14:21)
--- NOTE | 2021-01-31 13:55 | NUR ---
Patient is resting comfortably in bed, speaking on the phone, NAD noted.
--- NOTE | 2021-01-31 15:06 | NUR ---
Port a cath access removed, no bleeding noted at the site.
[2021-01-31 15:08] VITALS: BP 139/69
--- NOTE | 2021-01-31 15:08 | NUR ---
Patient discharged to home in stable condition. Written and verbal after care instructions given. Patient verbalizes understanding of instructions. Stressed follow up or return to ER for worsening s/s.
== END 2021-01-31 15:08 | disposition home or self-care (01) ==
LOC: ER 12:58
DX: D57.00 Hb-SS disease with crisis, unspecified (principal); Z90.49 Acquired absence of other specified parts of digestive tract; Z86.73 Personal history of transient ischemic attack (TIA), and cerebral infarction without residual deficits; Z79.01 Long term (current) use of anticoagulants; I20.9 Angina pectoris, unspecified
CPT/HCPCS: 96361; 96374; 96375; 96376; 99284; J1170 ×2; J1200 ×2; A4663; J7030

== ENCOUNTER 2021-02-03 19:24 | Emergency (ER) | payer OTHER ==
[~2021-02-03] VITALS: Ht 165.1 cm; Wt 61.2 kg
[2021-02-03] MEDS ORDERED: IV NORMAL SALINE 1000 ML BAG IV ONE (20:00)
[2021-02-03] MEDS ORDERED: HYDROMORPHONE 1 MG/1 ML DISP.SYRIN IV ONE (20:00)
[2021-02-03] MEDS ORDERED: diphenhydrAMINE 50 MG/1 ML VIAL ONE (20:24)
[2021-02-03] MEDS ORDERED: HYDROMORPHONE 1 MG/1 ML DISP.SYRIN ONE (20:24)
[2021-02-03] MEDS ORDERED: diphenhydrAMINE 50 MG CAPSULE ONE (20:26)
[2021-02-03] MEDS ORDERED: diphenhydrAMINE 50 MG CAPSULE PO ONE (20:30)
[2021-02-03 20:37] LABS: HEMATOCRIT 24.9 % (31.2-41.9); MEAN CORPUSCULAR VOLUME 86.9 fL (75.5-95.3); PLATELET COUNT (AUTO) 371 K/uL (179-408)
[2021-02-03 20:41] LABS: CREATININE 0.7 mg/dL (0.6-1.3); POTASSIUM 3.9 mmol/L (3.5-5.1)
--- NOTE | 2021-02-03 21:30 | NUR ---
Patient resting in bed with no distress noted.
[2021-02-03] MEDS ORDERED: HYDROCODONE/APAP 5-325MG TABLET PO ONE (22:00)
[2021-02-03] MEDS ORDERED: HYDROCODONE/APAP 5-325MG TABLET ONE (22:02)
--- NOTE | 2021-02-03 22:05 | NUR ---
luis e cath IV removed. Catheter intact and site benign. Pressure and 4x4 gauze applied to site. No bleeding noted.
[2021-02-03 22:08] VITALS: BP 145/86
== END 2021-02-03 22:09 | disposition home or self-care (01) ==
LOC: ER 19:29
DX: D57.00 Hb-SS disease with crisis, unspecified (principal); D72.829 Elevated white blood cell count, unspecified; Z86.73 Personal history of transient ischemic attack (TIA), and cerebral infarction without residual deficits; Z90.49 Acquired absence of other specified parts of digestive tract; Z88.6 Allergy status to analgesic agent; Z88.1 Allergy status to other antibiotic agents; Z83.2 Family history of diseases of the blood and blood-forming organs and certain disorders involving the immune mechanism
CPT/HCPCS: 36415; 71045; 80048; 85025; 96374; 99284; J1170; Q0163; A4663; J1200; J7030

== ENCOUNTER 2021-07-14 05:09 | Emergency (ER) | payer MEDICAID, OTHER ==
[~2021-07-14] VITALS: Ht 167.6 cm; Wt 65.8 kg
--- NOTE | 2021-07-14 05:20 | NUR ---
Pt brought back to room ED2A by assembler steam and gas turbine Adrian for sickle cell pain of LLQ abd pain and bilat leg pain 8/10. Pt placed on gurney in pos of comfort and connected to bedside monitor. VSS, PE WNL. Pt is aaox4 with good color and appearance. Pt waiting patiently for EDMD eval.
--- NOTE | 2021-07-14 05:29 | NUR ---
136/92, 100% RA, 99bpm, 16rpm, 8/10 pain in LLQ abd, and bilat legs
--- NOTE | 2021-07-14 05:29 | NUR ---
EDMD at pt bedside to assess pt condition.
[2021-07-14] MEDS ORDERED: IV NORMAL SALINE 1000 ML BAG IV ONE (05:30)
[2021-07-14] MEDS ORDERED: HYDROMORPHONE 1 MG/1 ML DISP.SYRIN IV ONE ×2 (05:30→08:15)
--- NOTE | 2021-07-14 05:45 | NUR ---
Pt placed on high flow O2 via nonrebreather per EDMD order. Pt is satting at 100% on NRB mask.
[2021-07-14] MEDS ORDERED: HYDROMORPHONE 2 MG/1 ML DISP.SYRIN ONE (06:29)
[2021-07-14] MEDS ORDERED: diphenhydrAMINE 50 MG/1 ML VIAL IV ONE ×2 (06:30→08:15)
[2021-07-14] MEDS ORDERED: diphenhydrAMINE 50 MG/1 ML VIAL ONE ×2 (06:40→08:40)
[2021-07-14 06:48] LABS: MEAN CORPUSCULAR HEMOGLOBIN 33.1 uug (24.7-32.8); MEAN CORPUSCULAR VOLUME 94.6 fL (75.5-95.3); PLATELET COUNT (AUTO) 285 K/uL (179-408)
--- NOTE | 2021-07-14 06:52 | NUR ---
Pt asked for ice chips and OJ. Pt given one cup of ice chips and 2 cups of OJ. Pt taken off NRB mask and remained at 100% SaO2, hence NRB mask DCed and pt satting well on RA with no complaints of SOB. SaO2 at 100% RA.
[2021-07-14 06:58] LABS: CREATININE 0.7 mg/dL (0.6-1.3); POTASSIUM 3.9 mmol/L (3.5-5.1)
[2021-07-14 07:03] LABS: BILIRUBIN,DIRECT 0.5 mg/dL (0.0-0.2); BILIRUBIN,TOTAL 2.2 mg/dL (0.2-1.0); TOTAL PROTEIN, SERUM 8.3 g/dL (6.4-8.2)
[2021-07-14] MEDS ORDERED: HYDROMORPHONE 1 MG/1 ML DISP.SYRIN ONE (08:41)
--- NOTE | 2021-07-14 09:20 | NUR ---
Remove port a cath access line, dressing applied, no bleeding noted.
[2021-07-14 09:21] VITALS: BP 140/89
== END 2021-07-14 09:22 | disposition home or self-care (01) ==
LOC: ER 05:11
DX: D57.00 Hb-SS disease with crisis, unspecified (principal); Z88.8 Allergy status to other drugs, medicaments and biological substances; Z79.01 Long term (current) use of anticoagulants; Z90.49 Acquired absence of other specified parts of digestive tract; Z88.6 Allergy status to analgesic agent; Z88.1 Allergy status to other antibiotic agents; Z88.2 Allergy status to sulfonamides; Z86.73 Personal history of transient ischemic attack (TIA), and cerebral infarction without residual deficits; Z86.69 Personal history of other diseases of the nervous system and sense organs
CPT/HCPCS: 80048; 80076; 83690; 85025; 96374; 96375; 96376; 99284; J1170 ×2; J1200 ×2

== ENCOUNTER 2021-08-02 15:00 | Emergency (ER) | payer MEDICAID ==
[2021-08-02] MEDS ORDERED: HYDR-3980 PO ×4 (15:33→16:27)
--- NOTE | 2021-08-02 16:00 | NUR ---
pt not in the waiting room. pt left without being triaged
== END 2021-08-02 16:00 | disposition left against medical advice (07) ==
LOC: ER 15:21
DX: Z53.21 Procedure and treatment not carried out due to patient leaving prior to being seen by health care provider (principal)

== ENCOUNTER 2021-11-29 16:34 | Emergency (ER) | payer MEDICAID ==
[~2021-11-29] VITALS: Ht 167.6 cm; Wt 65.8 kg
[2021-11-29] MEDS ORDERED: IV NORMAL SALINE 1000 ML BAG IV ONE ×2 (16:45→18:00)
[2021-11-29] MEDS ORDERED: diphenhydrAMINE 50 MG/1 ML VIAL ONE ×2 (16:58→17:57)
[2021-11-29] MEDS ORDERED: HYDROMORPHONE 1 MG/1 ML DISP.SYRIN ONE ×2 (16:58→17:58)
[2021-11-29] MEDS ORDERED: HYDROMORPHONE 1 MG/1 ML DISP.SYRIN IV ONE ×2 (17:00→18:00)
[2021-11-29] MEDS ORDERED: diphenhydrAMINE 50 MG/1 ML VIAL IV ONE ×2 (17:00→18:00)
[2021-11-29 17:05] LABS: HEMATOCRIT 27.2 % (31.2-41.9); MEAN CORPUSCULAR HEMOGLOBIN 28.5 uug (24.7-32.8); MEAN CORPUSCULAR VOLUME 84.4 fL (75.5-95.3); PLATELET COUNT (AUTO) 313 K/uL (179-408)
[2021-11-29 17:10] LABS: CARBON DIOXIDE 25 mmol/L (21-32); CHLORIDE 103 mmol/L (98-107); CREATININE 0.6 mg/dL (0.6-1.3); GLUCOSE 118 mg/dL (74-106); POTASSIUM 4.5 mmol/L (3.5-5.1); UREA NITROGEN, BLOOD 11 mg/dL (7-18)
[2021-11-29 17:15] LABS: ALANINE AMINOTRANSFERASE 184 U/L (14-59); ALKALINE PHOSPHATASE 182 U/L (50-136); ASPARTATE AMINOTRANSFERASE 187 U/L (15-37); BILIRUBIN,DIRECT 0.5 mg/dL (0.0-0.2); BILIRUBIN,TOTAL 1.1 mg/dL (0.2-1.0); TOTAL PROTEIN, SERUM 7.9 g/dL (6.4-8.2)
--- NOTE | 2021-11-29 19:52 | NUR ---
Patient discharged to home in stable condition. Written and verbal after care instructions given. Patient verbalizes understanding of instructions. Stressed follow up or return to ER for worsening s/s. pt ambulated with steady gait. denies pain. no SOB. no chest pain. AOx4
[2021-11-29 19:54] VITALS: BP 129/98
== END 2021-11-29 19:55 | disposition home or self-care (01) ==
LOC: ER 16:36
DX: D57.00 Hb-SS disease with crisis, unspecified (principal); R74.01 Elevation of levels of liver transaminase levels; R68.83 Chills (without fever); G89.29 Other chronic pain; Z86.73 Personal history of transient ischemic attack (TIA), and cerebral infarction without residual deficits; Z90.49 Acquired absence of other specified parts of digestive tract; Z88.6 Allergy status to analgesic agent; Z88.1 Allergy status to other antibiotic agents; Z88.2 Allergy status to sulfonamides; Z86.16 Personal history of COVID-19; Z79.01 Long term (current) use of anticoagulants
CPT/HCPCS: 36415; 71045; 80048; 80076; 83605; 85025; 87040 ×2; 96361; 96374; 96375; 96376; 99284; J1170 ×2; J1200 ×2; J7040 ×2; A4663

== ENCOUNTER 2022-02-14 13:07 | Emergency (ER) | payer MEDICAID ==
[~2022-02-14] VITALS: Ht 167.6 cm; Wt 65.8 kg
--- NOTE | 2022-02-14 13:23 | NUR ---
AT BEDSIDE FOR EVALUATION.
[2022-02-14] MEDS ORDERED: diphenhydrAMINE 50 MG/1 ML VIAL IV ONE (13:30)
[2022-02-14] MEDS ORDERED: HYDROMORPHONE 1 MG/1 ML DISP.SYRIN IV ONE ×2 (13:30→14:00)
[2022-02-14] MEDS ORDERED: IV NORMAL SALINE 500 ML BAG IV ONE (13:30)
--- NOTE | 2022-02-14 13:31 | NUR ---
Patient received pain medication and fluids. Is resting comfortably. Vitals within normal ranges.
[2022-02-14] MEDS ORDERED: HYDROMORPHONE 1 MG/1 ML DISP.SYRIN ONE ×2 (13:39→14:06)
[2022-02-14 13:53] LABS: CREATININE 0.7 mg/dL (0.6-1.3); POTASSIUM 3.7 mmol/L (3.5-5.1)
[2022-02-14 13:55] LABS: MEAN CORPUSCULAR HEMOGLOBIN 30.3 uug (24.7-32.8); MEAN CORPUSCULAR VOLUME 86.6 fL (75.5-95.3); PLATELET COUNT (AUTO) 305 K/uL (179-408)
--- NOTE | 2022-02-14 13:55 | NUR ---
PICC was flushed prior to discharge. PICC was patent. Reenforced patient education to follow up with primary provider. Patient verbalized understanding. Discharge papers were signed. Left with partner.
[2022-02-14 13:56] LABS: HEMATOCRIT 20.5 % (31.2-41.9)
[2022-02-14 13:58] LABS: BILIRUBIN,TOTAL 2.6 mg/dL (0.2-1.0); TOTAL PROTEIN, SERUM 7.7 g/dL (6.4-8.2)
[2022-02-14 14:21] LABS: BAND % (MANUAL) 1 % (0-10); EOSINOPHILS % (MANUAL) 4 % (0-8); LYMPHOCYTES % (MANUAL) 17 % (20-40); MONOCYTES % (MANUAL) 7 % (2-10); NEUTROPHILS % (MANUAL) 71 % (42-75)
[2022-02-14] MEDS ORDERED: diphenhydrAMINE 50 MG/1 ML VIAL ONE (14:21)
[2022-02-14 15:26] VITALS: BP 133/75
[2022-02-14 15:32] LABS: *BILIRUBIN,URIN NEGATIVE (NEGATIVE); *BLOOD, URINE NEGATIVE (NEGATIVE); *CLARITY,URINE CLEAR (CLEAR); *COLOR,URINE YELLOW (YELLOW); *KETONES,URINE NEGATIVE (NEGATIVE); *UROBILINOGEN,URINE 0.2 E.U./dl (NORMAL); LEUKOCYTE ESTERASE ,URINE NEGATIVE (NEGATIVE); NITRITE, URINE NEGATIVE (NEGATIVE); UGLUCOSE NEGATIVE (NEGATIVE)
[2022-02-14 15:52] LABS: RBC,URINE 0-3 /HPF (0-3); WBC,URINE 0-3 /HPF (0-3)
[2022-02-14 15:53] LABS: BACTERIA,URINE FEW /HPF (NONE SEEN); SQUAMOUS EPITHELIAL CELL,UR FEW /HPF (NONE SEEN)
[2022-02-14 16:00] LABS: *URINE HCG, QUAL NEGATIVE (NEGATIVE)
== END 2022-02-14 15:27 | disposition home or self-care (01) ==
LOC: ER 13:07
DX: D57.00 Hb-SS disease with crisis, unspecified (principal); R10.9 Unspecified abdominal pain
CPT/HCPCS: 80053; 81001; 84703; 83690; 85007; 85025; 36415; 99284; 96374; 96375; 96376; J1200 ×2; J1170 ×4; J7040 ×2; 70030-TC

== ENCOUNTER 2022-06-28 09:51 | Emergency (ER) | payer MEDICAID ==
[~2022-06-28] VITALS: Ht 167.6 cm; Wt 63.5 kg
[2022-06-28] MEDS ORDERED: diphenhydrAMINE 50 MG/1 ML VIAL ONE ×2 (10:11→10:46)
[2022-06-28] MEDS ORDERED: HYDROMORPHONE 1 MG/1 ML DISP.SYRIN ONE ×2 (10:12→10:46)
[2022-06-28] MEDS ORDERED: HYDROMORPHONE 1 MG/1 ML DISP.SYRIN IV ONE ×2 (10:15→10:45)
[2022-06-28] MEDS ORDERED: IV NORMAL SALINE 500 ML BAG IV ONE (10:15)
[2022-06-28] MEDS ORDERED: diphenhydrAMINE 50 MG/1 ML VIAL IV ONE ×2 (10:15→10:45)
[2022-06-28 10:23] LABS: HEMATOCRIT 23.3 % (31.2-41.9); MEAN CORPUSCULAR HEMOGLOBIN 32.3 uug (24.7-32.8); MEAN CORPUSCULAR VOLUME 91.5 fL (75.5-95.3); PLATELET COUNT (AUTO) 496 K/uL (179-408)
[2022-06-28 10:32] LABS: CARBON DIOXIDE 23 mmol/L (21-32); CHLORIDE 103 mmol/L (98-107); CREATININE 0.6 mg/dL (0.6-1.3); GLUCOSE 109 mg/dL (74-106); POTASSIUM 3.8 mmol/L (3.5-5.1); UREA NITROGEN, BLOOD 9 mg/dL (7-18)
== END 2022-06-28 11:30 | disposition home or self-care (01) ==
LOC: ER 09:58
DX: D57.1 Sickle-cell disease without crisis (principal); G89.4 Chronic pain syndrome; Z90.49 Acquired absence of other specified parts of digestive tract; Z79.01 Long term (current) use of anticoagulants; Z86.73 Personal history of transient ischemic attack (TIA), and cerebral infarction without residual deficits; Z88.6 Allergy status to analgesic agent; Z88.4 Allergy status to anesthetic agent; Z88.2 Allergy status to sulfonamides; Z88.8 Allergy status to other drugs, medicaments and biological substances
CPT/HCPCS: 99284; 96374; 96361; 96375; 80048; 85025; 36415; 96376; J1200 ×2; J1170 ×2; J7040

== ENCOUNTER 2022-09-13 15:45 | Emergency (ER) | payer MEDICAID ==
[~2022-09-13] VITALS: Ht 167.6 cm; Wt 63.5 kg
[2022-09-13] MEDS ORDERED: IV NORMAL SALINE 1000 ML BAG IV ONE (16:00)
[2022-09-13] MEDS ORDERED: BENADRYL PO (16:01)
[2022-09-13] MEDS ORDERED: PROTONIX PO (16:01)
[2022-09-13] MEDS ORDERED: diphenhydrAMINE 50 MG/1 ML VIAL IV ONE ×2 (16:30→17:30)
[2022-09-13] MEDS ORDERED: HYDROMORPHONE 1 MG/1 ML DISP.SYRIN IV ONE ×2 (16:30→17:30)
[2022-09-13] MEDS ORDERED: diphenhydrAMINE 50 MG/1 ML VIAL ONE ×2 (16:32→17:26)
[2022-09-13] MEDS ORDERED: HYDROMORPHONE 1 MG/1 ML DISP.SYRIN ONE ×2 (16:32→17:26)
[2022-09-13 16:35] LABS: MEAN CORPUSCULAR HEMOGLOBIN 32.9 uug (24.7-32.8); MEAN CORPUSCULAR VOLUME 92.6 fL (75.5-95.3); PLATELET COUNT (AUTO) 303 K/uL (179-408)
[2022-09-13 16:38] LABS: HEMATOCRIT 19.8 % (31.2-41.9)
[2022-09-13 16:47] LABS: CREATININE 0.9 mg/dL (0.6-1.3); POTASSIUM 4.2 mmol/L (3.5-5.1)
--- NOTE | 2022-09-13 16:59 | NUR ---
Patient came to ED with complaint of Sickle cell crisis. Awake ,alert,and oriented x4. room air. No acute distress. Complained of throbbing pain in both lower extremities. Medicated as ordered. IV fluids infusing via left chest port.
[2022-09-13] MEDS ORDERED: HEPARIN SODIUM,PORCINE/PF 50 UNIT/5 ML SYR IV ONE (18:15)
[2022-09-13] MEDS ORDERED: HEPARIN SODIUM,PORCINE/PF 100 UNIT/ML, 5ML SYR ONE (18:16)
== END 2022-09-13 18:26 | disposition home or self-care (01) ==
LOC: ER 15:48
DX: D57.00 Hb-SS disease with crisis, unspecified (principal); D72.829 Elevated white blood cell count, unspecified; Z90.49 Acquired absence of other specified parts of digestive tract; Z79.01 Long term (current) use of anticoagulants; Z86.73 Personal history of transient ischemic attack (TIA), and cerebral infarction without residual deficits; Z86.16 Personal history of COVID-19; G89.4 Chronic pain syndrome; Z88.6 Allergy status to analgesic agent; Z88.1 Allergy status to other antibiotic agents; Z88.2 Allergy status to sulfonamides
CPT/HCPCS: 99285; 96374; 71045; 96361; 96375; 80048; 85025; 85044; 87040 ×2; 36415; 96376; 83605; J1642 ×2; J1200 ×2; J1170 ×2; J7040; 70030-TC; A4663